=== PATIENT | female | born 1970 | race Caucasian/White ===

== ENCOUNTER 2021-01-20 15:16 | Inpatient (IN) | payer MEDICARE, SELFPAY ==
[2021-01-20] VITALS (23 sets, daily range): BP systolic 80–131; BP diastolic 55–94; PULSE 108–162; RESP 14–33; TEMP 36.3–36.9; O2SAT 94–100; BMI 33.3
--- NOTE | ~2021-01-20 | US_ITS ---
EXAMINATION: US renal BI DATE: 01/21/2021 08:39 INDICATION: Acute renal failure TECHNIQUE: Multiple ultrasound grayscale images of the kidneys were obtained. COMPARISON: None. FINDINGS: The right kidney measures 10.0 x 5.2 x 4.7 cm. Mild right hydronephrosis The left kidney measures 0.0 x 6.3 x 5.7 cm. No left-sided hydronephrosis. The kidneys demonstrate normal echogenicity. No stones identified. The bladder is decompressed around a Lott catheter which limits evaluation.. IMPRESSION: 1. Mild right hydronephrosis which appears decreased since CT from one day prior at which time there was moderate hydroureteronephrosis secondary to an obstructing 13 mm distal right ureteral stone. Reviewed, dictated and finalized at location A. IMPRESSION: 1. Mild right hydronephrosis which appears decreased since CT from one day cem or at which time there was moderate hydroureteronephrosis secondary to an obstr ucting 13 mm distal right ureteral stone.
--- NOTE | ~2021-01-20 | CT_ITS ---
EXAMINATION: CT brain wo [facility] EXAM DATE: 01/20/2021 18:37 INDICATION: Altered mental status, confusion, lethargy, nausea and vomiting. TECHNIQUE: Spiral CT of the head was performed without contrast. Axial, coronal and sagittal images were reviewed. The dose-length product (DLP) for this examination was 1343.72 mGy-cm. The exposure was tailored according to patient size, and iterative reconstruction (ASIR) was used as additional do se reduction technique. There is no prior study for comparison. FINDINGS: There is no acute intraparenchymal hemorrhage. No evidence of intraparenchymal brain mass lesion. No evidence of acute infarction. There is no mass effect or midline shift. The ventricles are normal in size. There are no extra-axial collections. There are no acute calvarial fractures. T he orbits are unremarkable. Soft tissue is unremarkable. The visualized sinuses and mastoid air israel ls are well aerated. IMPRESSION: 1. No acute intracranial findings. Reviewed, dictated and finalized at location G.
--- NOTE | ~2021-01-20 | XR_ITS ---
EXAMINATION: XR stent kub - surgery DATE: 01/21/2021 14:58 INDICATION: Right internal ureteral stent placement TECHNIQUE: Fluoroscopic images from a right internal ureteral stent placement are submitted for sabra walden 49 seconds of fluoroscopy time. FINDINGS: There is a right double-J internal ureteral stent projecting in expected position, with proximal Hodge loop at the level of the renal pelvis and distal loop in the pelvis within the bladder lumen. IMPRESSION: 1. Right internal ureteral stent placement. Please refer to real-time procedural findings for detkavitha ls. Reviewed, dictated and finalized at location A. IMPRESSION: 1. Right internal ureteral stent placement. Please refer to real-time procedu ral findings for details.
--- NOTE | ~2021-01-20 | CT_ITS ---
EXAMINATION: CT abdomen pelvis wo con DATE: 01/21/2021 13:24 INDICATION: Sepsis and elevated lactic acid. TECHNIQUE: Computed tomography (CT) of the abdomen and pelvis was performed without intravenous contr ast. Automated exposure control and iterative reconstruction technique were employed. The dose-length product was 1430.67 mGy-cm. COMPARISON: 01/20/2021 FINDINGS: Mild bilateral posterior layering pleural effusions with dependent atelectasis in the bilateral lower lobes. Heart size is normal. No pericardial effusion. Small sliding-type hiatal hernia versus circum ferential wall thickening in the distal esophagus. Diffuse hepatic steatosis. Cholecystectomy clips a t the gallbladder fossa. Spleen, pancreas, bilateral adrenal glands are normal. 1 mm nonobstructing s tone at a lower pole calyx of the left kidney. Small region of cortical scarring at the lower pole of the right kidney. Unchanged 17 x 6 x 5 mm distal right ureteral stone but with improvement of previo usly moderate, now mild right hydronephrosis. Appendix is normal. Unchanged wall thickening in the pr oximal colon which is of macroscopic fat attenuation and favor fatty infiltration related to body hab itus over colitis. No bowel obstruction. Lott catheter in the decompressed bladder. Uterus and bilat eral adnexa are unremarkable. Small amount of ascites scattered throughout the abdomen and pelvis. No loculated fluid collections to suggest abscess. Mild mesenteric and retroperitoneal edema. Right com mon femoral central venous catheter with distal tip in the right common iliac vein. No pathologically enlarged abdominal or pelvic lymphadenopathy. Mild thoracolumbar spondylosis. IMPRESSION: 1. Nonspecific mild mesenteric and retroperitoneal edema with small amount of ascites scattered throu ghout the abdomen and pelvis. On the previous study there was significant peripancreatic stranding wh ich is improved in the current study suggesting possible acute pancreatitis. 2. Unchanged 17 x 6 x 5 mm distal right ureteral stone with improvement of previously moderate, now m ild right hydronephrosis. Nonobstructing 1 mm left renal stone. 3. Diffuse hepatic steatosis. 4. Small bilateral pleural effusions. 5. Small sliding-type hiatal hernia versus circumferential wall thickening the distal esophagus which could be related to reflux. Reviewed, dictated and finalized at location A. IMPRESSION: 1. Nonspecific mild mesenteric and retroperitoneal edema with small amount of a scites scattered throughout the abdomen and pelvis. On the previous study there was significant peripancreatic stranding which is improved in the current stud y suggesting possible acute pancreatitis. 2. Unchanged 17 x 6 x 5 mm distal right ureteral stone with improvement of prev iously moderate, now mild right hydronephrosis. Nonobstructing 1 mm left renal stone. 3. Diffuse hepatic steatosis. 4. Small bilateral pleural effusions. 5. Small sliding-type hiatal hernia versus circumferential wall thickening the distal esophagus which could be related to reflux.
--- NOTE | ~2021-01-20 | XR_ITS ---
EXAMINATION: XR abdomen NG/feed tube insert INDICATION: Nasogastric tube placement TECHNIQUE: Portable AP KUB-NG at 2141 hours COMPARISON: CT from today FINDINGS: The nasogastric tube is in the stomach. There is mild atelectasis of the lung bases. Cholec ystectomy clips are noted in the right upper quadrant. IMPRESSION: 1. Nasogastric tube in the stomach. Reviewed, dictated and finalized at location A.
--- NOTE | ~2021-01-20 | XR_ITS ---
XR abdomen/kub 1V 01/21/2021 11:30 INDICATION: NG tube position TECHNIQUE: KUB COMPARISON: 01/20/2021 FINDINGS: Bowel gas pattern is normal. NG tube tip in the stomach. There are cholecystectomy clips. T here is a right femoral vascular catheter partially visualized. There is no evidence of free air, mas s, organomegaly, ascites or obstruction. No abnormal calculi are seen. The bones appear intact. IMPRESSION: 1: No acute abdominal abnormality identified. Reviewed, dictated and finalized at location A.
--- NOTE | ~2021-01-20 | CT_ITS ---
EXAMINATION: CT abdomen pelvis wo con DATE: 01/20/2021 18:37 INDICATION: Epigastric pain, confusion and lethargy TECHNIQUE: Computed tomography (CT) of the abdomen and pelvis was performed without intravenous contr ast. The dose-length product (DLP) was 1343.72 mGy-cm. Automated exposure control and iterative recon struction technique were employed. COMPARISON: None FINDINGS: Minimal dependent atelectasis is present in the lung bases. The heart size is normal. The l iver is diffusely low in attenuation when compared with the spleen, consistent with hepatic steatosis . The gallbladder is surgically absent. There is enlargement of the pancreas with edematous stranding surrounding much of the peripancreatic fat. Fluid tracks into the right pericolic gutter. Wall thick ening in the second portion of the duodenum is likely reactive. The spleen, adrenal glands, and left kidney are normal. There is a 13 mm stone in the distal right ureter, measure craniocaudal, which cau ses moderate right hydroureteronephrosis. There is no free intraperitoneal gas or evidence of bowel o bstruction. No pathologically enlarged abdominal or pelvic lymph nodes are identified. There is mild lumbar spondylosis. IMPRESSION: 1. Acute pancreatitis with acute peripancreatic fluid. 2. 13 mm stone of the right distal ureter causing moderate right hydroureteronephrosis. 3. Diffuse hepatic steatosis. Reviewed, dictated and finalized at location A. IMPRESSION: 1. Acute pancreatitis with acute peripancreatic fluid. 2. 13 mm stone of the right distal ureter causing moderate right hydroureterone phrosis. 3. Diffuse hepatic steatosis.
--- NOTE | ~2021-01-20 | XR_ITS ---
EXAMINATION: XR chest 1V portable INDICATION: Transient alteration of awareness TECHNIQUE: Portable AP chest at 1802 hours COMPARISON: 03/24/2018 FINDINGS: The lungs are free of acute opacities. There is no pleural effusion or pneumothorax. The ca rdiomediastinal silhouette is normal. The visualized bones and soft tissues are unremarkable. IMPRESSION: 1. No acute cardiopulmonary abnormality. Reviewed, dictated and finalized at location A.
[2021-01-20 15:23] LABS: Glucose Point of Care > 500 mg/dl (65-105)
[2021-01-20] MEDS: SODIUM CHLORIDE 0.9% IV 1,000 ML 999 ML (15:45)
[2021-01-20 16:06] LABS: Alveolar/Arterial O2 Gradient 33.8 mmHg; Base Excess ABG -14.9 mEq/l (+/-2.0); Carboxyhemoglobin 0.9 % THb (0-2.0); Fractional Inspired Oxygen 21 %; HCO3 ABG 12.5 mEq/l (22.0-26.0); Methemoglobin ABG 0.5 %THb (0-1.5); Oxygen Content ABG 18.5 %vol (16.0-22.0); Oxygen Saturation ABG 91.3 % (95.0-100.0); Oxyhemoglobin 91.5 % THb (90.0-100.0); PCO2 ABG 34.7 mmHg (35.0-45.0); PO2 ABG 74.4 mmHg (80.0-100.0); PO2 FiO2 Ratio Arterial Blood 3.54 %; Reduced Hemoglobin 7.1 %THb (0-5.0); Total Hemoglobin 14.4 g/dL (12.0-18.0)
[2021-01-20 16:08] LABS: Device ROOM AIR; Site Drawn LEFT BRACHIAL
[2021-01-20 16:46] LABS: Add Urine Microscopic? YES; Appearance Urine Turbid (Clear); Bilirubin Urine Negative (Negative); Blood Urine 2+ (Negative); Color Urine Yellow (Yellow); Glucose Urine UA 3+ mg/dL (Negative); Ketones Urine Trace mg/dL (Negative); Leukocyte Esterase Ur 3+ LEU/UL (Negative); Nitrate Urine Negative (Negative); Protein Urine 1+ mg/dL (Negative); RBC Urine 21-50 /hpf (0-2); Specific Grav Ur 1.025 (1.001-1.035); Squamous Epithelial Cell Urine Occasional /hpf (Few); Urobilinogen Urine Negative mg/dL (<2.0); WBC Clumps Urine Present /HPF; WBC Urine >75 /hpf
[2021-01-20 16:56] LABS: Lactic Acid Reflex 3.1 mmol/L (0.7-2.1)
[2021-01-20 17:04] LABS: Hemoglobin A1C > 14.0 % (<5.7)
--- NOTE | 2021-01-20 17:08 | ED.GENADULT ---
HPI - General Adult General Chief complaint: Unspecified Stated complaint: N/V ABD PAIN Time Seen by Provider: 01/20/21 15:23 History of Present Illness HPI narrative: Patient is a 50-year-old female who presents ER after EMS was called by her daughter. Patient's daughter reports patient has been vomiting for the last 2 weeks and reporting that she has been having burning urination. Today patient cannot fill the bathtub properly as she cannot put the plug in the drain. This prompted the daughter to call EMS because her mom was not acting right and was acting more confused. Patient reports she has been very thirsty for several days. Poor historian due to severity of illness. Related Data Allergies Allergy/AdvReac Type Severity Reaction Status Date / Time No Known Allergies Allergy Unknown Unverified 01/20/21 16:24 Review of Systems Review of Systems: ROS unobtainable: Yes unobtainable due to medical condition PMFSH Past Medical History Medical History (Updated 01/20/21 @ 19:31 by Raul Sharif MD) Anxiety COPD (chronic obstructive pulmonary disease) Depression History of fibromyalgia Hypertension Surgical History Surgical History (Updated 01/20/21 @ 17:30 by Raul Sharif MD) History of section History of cholecystectomy History of tubal ligation Family History Family History Sibling Family history of mental disorder Depression Mother Family history of mental disorder Depression Patient's mother is in good health Father Patient's father is Grandparent Hypertension Mother Family history of tuberculosis Depression Social History Social History Smoking status: Former smoker Smoking end date: 06/27/14 Alcohol intake: current Exam Narrative: Exam Narrative: GENERAL: Ill-appearing, well-nourished, and in no acute distress. HEAD: Normocephalic, atraumatic. EYES: PERRL and EOMI. ENT: Dry mucous membranes with poor dentition. CHEST: Clear to auscultation. No respiratory distress. HEART: Tachycardic regular.. Normal peripheral pulses. ABDOMEN: Soft, mild diffuse tenderness, nondistended, normal active bowel sounds. EXTREMITIES: Normal range of motion. No edema. SKIN: Warm, dry, no rash. NEURO: Alert and oriented x2. Course Course Emergency Course: Patient critically ill and this has been explained to her daughter as well as her . Consultants include the pulp bleacher as well as urology and cardiology. Initial plan was to take patient to the OR for stenting but it is felt she may not be stable enough. Patient has had some extreme tachycardia up to the 180s. After discussions with Dr. Clarke and an EKG that shows ST depression is felt that we need to continue to treat the DKA and dehydration with fluids. Should patient require any rate control as recommended patient received IV amiodarone bolus followed by drip. Repeat labs have found that potassium is now critically low so insulin drip was stopped and patient received oral and IV potassium. It is encouraging that patient now has a detectable glucose of 1615 when it was just reading too high previously. Patient has received ceftriaxone for her infection. Was pancultured. Patient with worsening acidosis and has received 2 A of sodium bicarbonate. Vital Signs Vital signs: Vital Signs Pulse Rate 119 H 01/20/21 15:12 Respiratory Rate 24 H 01/20/21 15:12 Blood Pressure 94/67 L 01/20/21 15:12 Pulse Oximetry 96 01/20/21 15:12 Temperature 98.4 F 01/20/21 19:08 Pulse Rate 157 H 01/20/21 20:46 Respiratory Rate 26 H 01/20/21 20:46 Blood Pressure 102/77 01/20/21 20:46 Pulse Oximetry 95 01/20/21 19:08 Medical Decision Making Vital Signs Vital Signs: Vital Signs Pulse Rate 119 H 01/20/21 15:12 Respiratory Rate 24 H 01/20/21 15:12 Blood Pressure 94/67
[2021-01-20 17:13] LABS: Alanine Aminotransferase 39 U/L (4-35); Alkaline Phosphatase 256 U/L (38-126); Anion Gap 24 mmol/L (8-16); Aspartate Amino Transferase 33 U/L (14-36); Bilirubin,Total 0.9 mg/dL (0.2-1.3); Blood Urea Nitrogen 32 mg/dL (7-17); Calcium 7.9 mg/dL (8.4-10.2); Carbon Dioxide 14 mmol/L (22-30); Chloride 88 mmol/L (98-107); Estimated Glomerular Filt Rate 18; Magnesium 2.7 mg/dL (1.6-2.3); Phosphorus 3.5 mg/dL (2.5-4.5); Potassium 3.4 mmol/L (3.4-5.0); Sodium 126 mmol/L (137-145)
[2021-01-20] MEDS: SODIUM CHLORIDE 0.9% IV 1,000 ML 999 ML IV CONT ×3 (17:15→19:32)
[2021-01-20 17:27] LABS: Basophils Absolute Auto 0.1 K/mm3 (0.0-0.1); Basophils Percent Auto 0.3 % (0.2-1.2); Hematocrit 53.1 % (37.0-47.0); Hemoglobin 13.9 g/dL (12.0-15.0); Immature Granulocyte Percent A 0.7 % (0-0.5); Lymphocytes Absolute Auto 0.68 K/mm3 (0.9-3.2); Lymphocytes Percent Auto 4.8 % (18.3-44.2); Mean Corpuscular HGB Conc 26.2 g/dl (32-36); Mean Corpuscular Hemoglobin 30.6 pg (26-34); Mean Platelet Volume 12.7 fl (7.4-10.4); Monocytes Absolute Auto 1.5 K/mm3 (0.1-0.6); Monocytes Percent Auto 10.3 % (2.6-8.5); Neutrophils Percent Auto 83.9 % (45.5-73.1); Platelet Count Result 289 k/mm3 (150-375); Red Blood Count 4.54 M/mm3 (4.2-5.4); Red Cell Distribution Width 13.7 % (11.5-14.5); White Blood Count 14.3 K/mm3 (4.5-10.0)
[2021-01-20 17:39] LABS: Albumin Level 3.3 g/dL (3.5-5.1); Glucose > 1875 mg/dL (65-110)
[2021-01-20] MEDS: INSULIN HUMAN REGULAR (*BKC) 100 UNITS in SODIUM CHLORIDE 0.9% IV 99 ML 36.3 UNITS IV CONT (18:00)
--- NOTE | 2021-01-20 18:07 | PC.NURSE ---
Pt confused and daughter stepped out of room. Placing pt on bed alarm at this time
--- NOTE | 2021-01-20 18:28 | PC.NURSE ---
Pt to CT scan via stretcher on tele monitor.
[2021-01-20 18:50] LABS: Glucose Point of Care > 500 mg/dl (65-105)
[2021-01-20] MEDS: MORPHINE SULFATE (*CRX) 4 MG/ML INJ IV PUSH (19:00)
--- NOTE | 2021-01-20 19:09 | PC.NURSE ---
EDP Dr. Sharif made aware of abnormal VS.
--- NOTE | 2021-01-20 19:19 | ECG_ITS ---
Measurements Intervals [place] Rate: 114 P: 47 UT: 118 QRS: -22 QRSD: 94 T: -45 QT: 327 QTc: 452 Interpretive Statements SINUS TACHYCARDIA WITH SHORT UT INTERVAL POSSIBLE LEFT ATRIAL ENLARGEMENT ST-T WAVE ABNORMALITY IN INFERIOR LEADS- CONSIDER ISCHEMIA BASELINE ARTIFACT- I, II, III, AVR, AVL, AVF, V1-V6 ABNORMAL ECG Electronically Signed On 01-20-2021 21:08:26 CDT by Misael Lemon D.O.
[2021-01-20 19:22] LABS: INR 1.2; Prothrombin Time 14.7 Seconds (11.1-14.7)
[2021-01-20 19:23] LABS: Partial Thromboplastin Time 26.2 SECONDS (22.3-36.8)
[2021-01-20 19:27] LABS: Triglycerides 443 mg/dL (<150)
--- NOTE | 2021-01-20 19:31 | ECG_ITS ---
Measurements Intervals [place] Rate: 148 P: 112 SD: 149 QRS: -39 QRSD: 245 T: 0 QT: 325 QTc: 511 Interpretive Statements ATRIAL FLUTTER/TACHYCARDIA WITH RAPID VENTRICULAR RESPONSE LEFT AXIS DEVIATION INCOMPLETE RIGHT BUNDLE BRANCH BLOCK ST-T WAVE ABNORMALITY IN ANTEROLAT/INF LEADS- CONSIDER ISCHEMIA BASELINE ARTIFACT- I, II, III ABNORMAL ECG Electronically Signed On 01-20-2021 21:26:20 CDT by Misael Lemon D.O.
[2021-01-20 19:34] LABS: Reflex Lactic Acid Yes or No Add Lactic
[2021-01-20 20:00] LABS: Glucose > 1875 mg/dL (65-110); Lipase 7231 U/L (23-300)
[2021-01-20 20:15] LABS: pH ABG 7.174 (7.350-7.450)
[2021-01-20 20:17] LABS: Lactic Acid 4.6 mmol/L (0.7-2.1)
[2021-01-20 20:26] LABS: Troponin I < 0.012 ng/mL (0.000-0.034)
[2021-01-20] MEDS: SODIUM BICARBONATE 8.4% 50 MEQ/50 ML SYRINGE 100 MEQ IV PUSH (20:34)
[2021-01-20] MEDS: SODIUM BICARBONATE 8.4% 50 MEQ/50 ML VIAL (20:34)
--- NOTE | 2021-01-20 20:41 | PC.NURSE ---
Called unit to give report, unable to take report at this time. Unit to call ED back.
[2021-01-20 20:48] LABS: Anion Gap 22 mmol/L (8-16); Blood Urea Nitrogen 30 mg/dL (7-17); Calcium 7.9 mg/dL (8.4-10.2); Carbon Dioxide 11 mmol/L (22-30); Chloride 104 mmol/L (98-107); Creatine Kinase 164 U/L (30-135); Estimated Glomerular Filt Rate 21; Potassium < 2.0 mmol/L (3.4-5.0); Sodium 137 mmol/L (137-145)
--- NOTE | 2021-01-20 21:00 | PM.IMHP ---
H&P: HPI History of Present Illness Date/Time: 01/20/21 21:00 Chief Complaint: Lethargy, nausea, vomiting. Narrative: This is a 50-year-old with hypertension, anxiety, and asthma who presented to the emergency department earlier today via EMS from home for evaluation of lethargy, nausea, and vomiting. She is not able to provide me with much of an accurate history as she is confused and lethargic thus some of the following is obtained via a review of her electronic medical records, review of the EMS run report, and discussions with her daughter who is at bedside. She has not been feeling well for a couple of weeks with ongoing nausea and vomiting. Over the last couple of days she has also been complaining of dysuria and extreme thirst. This afternoon the patient was trying to take a bath and did understand why it was not filling up with water though she did not plug the drain. Her daughter then then decided to call EMS. In the emergency department she was found to have a glucose of greater than 1800, is in acute renal failure, and has evidence of a obstructing right distal ureteral calculus as well as acute pancreatitis. She has no prior history of diabetes, kidney stones, or pancreatitis to the daughter's knowledge. The patient has not complained of fever. Daughter has not noticed any cold or flu symptoms. The patient has not complained of diarrhea. She has reported some dysuria. At this time she is complaining of mild shortness of breath and abdominal pain though she is unable to further qualify. She denies chest pain. Review of Systems Review of Systems: Narrative: Twelve systems were reviewed with pertinent positives and negatives as per HPI. Somewhat limited given her lethargy and encephalopathy. Except as documented all other systems were reviewed and are negative. [facility] Past Medical History Medical History (Updated 01/21/21 @ 19:40 by Martina Chambers PA-C) Anxiety Chronic obstructive pulmonary disease Depression History of fibromyalgia Hypertension Surgical History Surgical History History of section History of cholecystectomy History of tubal ligation Family History Family History Sibling Family history of mental disorder Depression Mother Family history of mental disorder Depression Patient's mother is in good health Father Patient's father is Grandparent Hypertension Mother Family history of tuberculosis Depression Social History Social History (Updated 01/21/21 @ 19:41 by Martina Chambers PA-C) Social History: but . Currently living in an apartment. Plans to move in with her daughter and granddaughter. She is on disability for her fibromyalgia and anxiety. Former smoker, a pack of cigarettes a day for approximately 30 years. No alcohol or illicit substance abuse. Smoking end date: 06/27/14 Meds Home Medications and Allergies Home Medications Medication Instructions Recorded Confirmed Type naproxen 500 mg tablet 500 mg PO BID #60 tablet 05/28/19 01/21/21 Rx fluticasone propionate 220 See Rx Instructions .ROUTE 09/29/20 01/21/21 Rx mcg/actuation HFA aerosol inhaler .COMPLEX #12 inhaler fluticasone propionate 50 See Rx Instructions .ROUTE 09/29/20 01/21/21 Rx mcg/actuation nasal .COMPLEX #16 ml spray,suspension ipratropium 20 mcg-albuterol 100 See Rx Instructions .ROUTE 09/29/20 01/21/21 Rx mcg/actuation mist for inhalation .COMPLEX #12 gm metoprolol tartrate 50 mg tablet See Rx Instructions .ROUTE 09/29/20 01/21/21 Rx .COMPLEX #60 tablet clonazepam 1 mg tablet 1 mg PO TID #90 tablet 12/27/20 01/21/21 Rx Allergies Allergy/AdvReac Type Severity Reaction Status Date / Time No Known Allergies Allergy Unknown Unverified 01/20/21 16:24 Vital Signs Vital Signs - 24 hr 01/20/21 15:12 01/20/21 15:33 01/20
--- NOTE | 2021-01-20 21:02 | PC.NURSE ---
Insulin stopped per verbal read back order due to potassium level. Per Martina, NG to be started and 40 meq to be given that way. Waiting for IV potassium from pharmacy, pharmacy called at this time.
[2021-01-20 21:03] LABS: Magnesium 2.7 mg/dL (1.6-2.3); Phosphorus 1.6 mg/dL (2.5-4.5)
[2021-01-20 21:10] LABS: Glucose 1615 mg/dL (65-110)
--- NOTE | 2021-01-20 21:27 | PC.NURSE ---
Verbal order for NG tube from Martina. NG placed, 16 F. XY called for K[facility].
--- NOTE | 2021-01-20 22:00 | WPDPROCEDUR ---
Procedures Central Line Placement Right Femoral: Central Line Date: 01/20/21 Central Line Time: 22:00 Discussed w/ the patient/family/POA,the placement of a central venous catheter, including its clinical necessity/indication & associated potential risks, benifits and alternatives.: Yes The patient/family/POA understand(s) and acknowledge(s) the need to proceed with central venous catheter insertion as an important element of the patient's clinical management.: Yes Consent: Family gave consent to RN. Time Out Performed: Yes Patient Position: supine Patient placed on monitor/pulse ox: Yes Provider Prep: mask, sterile gown, sterile gloves, Max. sterile barrier precautions and cap Central line prep: 2% Chlorhexidine scrub Local anesthesia used: lidocaine 1% Amount of anesthesia used (ml): 5 Sterile US Technique with sterile gel/sterile probe covers: Yes Central line lumen inserted: triple Bangladeshi: 7 Length (cm): 20 Post Procedure: sutured in place, good blood return, all ports aspirated, flushed, capped, transparent dressing, securement product and aseptic technique maintained throughout procedure Post procedure x-ray: other (n/a with femoral placement ) Patient tolerated procedure: well Complications: none Additional comments: Discussed with Dr. Raul Sharif, ED attending physician, who was available if needed.
[2021-01-20] MEDS: POTASSIUM CHLORIDE 20 MEQ TABLET 40 MEQ PO (22:17)
--- NOTE | 2021-01-20 22:18 | PC.NURSE ---
Potassium at 250 per verbal read back order. Right femoral central okay to use by MD Martina.
[2021-01-20] MEDS: SODIUM CHLORIDE 0.9% IV 1,000 ML 200 ML IV CONT (22:26)
[2021-01-20] MEDS: NOREPINEPHRINE 8 MG/D5W 250 ML 8 MG/250 ML BAG 9.38 MG IV CONT (23:43)
[2021-01-20 23:54] LABS: Anion Gap 15 mmol/L (8-16); Blood Urea Nitrogen 29 mg/dL (7-17); Calcium 7.9 mg/dL (8.4-10.2); Carbon Dioxide 19 mmol/L (22-30); Chloride 113 mmol/L (98-107); Estimated CRCL calculation 26 ml/min; Estimated Glomerular Filt Rate 20; Glucose 1186 mg/dL (65-110); Potassium < 2.0 mmol/L (3.4-5.0); Sodium 147 mmol/L (137-145)
[2021-01-20 23:55] LABS: Lactic Acid Reflex 7.3 mmol/L (0.7-2.1)
[2021-01-21] VITALS (23 sets, daily range): BP systolic 85–144; BP diastolic 59–106; PULSE 80–117; RESP 18–34; TEMP 36.6–37.6; O2SAT 90–97; BMI 33.3
--- NOTE | 2021-01-21 00:30 | ADMGEN ---
This patient, Su A [place], was admitted to Intensive Care Unit-12. Patient/family oriented to hospital policies and general routines including ID bracelet, bed and alarms, visiting hours, pain management, procedures, bathroom and other care routines, personal items, smoking policy, room service/diet, and visiting hours. Information on how to activate the Rapid Response Team has been discussed. Patient/Family are encouraged to report perceived risks to care and to ask questions if they do not understand what they are told or what they should do.
[2021-01-21] MEDS: SODIUM CHLORIDE 0.45% 1,000 ML 125 ML IV CONT (01:33)
[2021-01-21 04:54] LABS: Hematocrit 44.8 % (37.0-47.0); Hemoglobin 14.2 g/dL (12.0-15.0); Mean Corpuscular HGB Conc 31.7 g/dl (32-36); Mean Corpuscular Hemoglobin 30.1 pg (26-34); Mean Corpuscular Volume 95.1 fl (80-100); Mean Platelet Volume 11.8 fl (7.4-10.4); Platelet Count Result 306 k/mm3 (150-375); Red Blood Count 4.71 M/mm3 (4.2-5.4); Red Cell Distribution Width 13.4 % (11.5-14.5); White Blood Count 14.8 K/mm3 (4.5-10.0)
[2021-01-21 05:10] LABS: Lactic Acid Reflex 2.5 mmol/L (0.7-2.1)
[2021-01-21 05:19] LABS: Band Neutrophils Percent 16 % (0-6); Neutrophils Absolute Manual 12.87 K/mm3 (1.7-7.2); Neutrophils Percent Manual 71 % (46-73); Total Cells Counted 100
[2021-01-21 05:20] LABS: Lymphocytes Absolute Manual 0.88 K/mm3 (1.1-4.5); Monocytes Absolute Manual 1.03 K/mm3 (0.1-0.90); Monocytes Percent Manual 7 % (3-9); Platelet Estimate Adequate (Adequate)
[2021-01-21 05:28] LABS: Alanine Aminotransferase 35 U/L (4-35); Albumin Level 2.9 g/dL (3.5-5.1); Alkaline Phosphatase 212 U/L (38-126); Anion Gap 16 mmol/L (8-16); Aspartate Amino Transferase 41 U/L (14-36); Bilirubin,Total 0.6 mg/dL (0.2-1.3); Blood Urea Nitrogen 33 mg/dL (7-17); Calcium 8.1 mg/dL (8.4-10.2); Carbon Dioxide 18 mmol/L (22-30); Chloride 112 mmol/L (98-107); Creatine Kinase 385 U/L (30-135); Estimated CRCL calculation 28 ml/min; Estimated Glomerular Filt Rate 22; Glucose 1145 mg/dL (65-110); Magnesium 2.8 mg/dL (1.6-2.3); Phosphorus 1.4 mg/dL (2.5-4.5); Potassium 3.9 mmol/L (3.4-5.0); Sodium 146 mmol/L (137-145)
--- NOTE | 2021-01-21 05:44 | PC.NURSE ---
Dr. Mariscal was updated with current lab results. Keep 1/2 NS @ 125. Start insulin drip per protocol, no other maintenance IVF.
[2021-01-21 06:01] LABS: Thyroid Stimulating Hormone Reflex 0.799 uIU/mL (0.465-4.68)
[2021-01-21] MEDS: INSULIN HUMAN REGULAR (*BKC) 100 UNITS in SODIUM CHLORIDE 0.9% IV 99 ML 21.7 UNITS IV CONT (06:16)
[2021-01-21] MEDS: CENTRAL LINE FLUSH 10 ML IV PUSH ×4 (06:40→19:46)
--- NOTE | 2021-01-21 07:36 | WPDURCON ---
Assessment and Plan Assessment and plan (1) Diabetic ketoacidosis: Code(s): E11.10 - Type 2 diabetes mellitus with ketoacidosis without coma Status: Acute (2) Urinary tract infection: Code(s): N39.0 - Urinary tract infection, site not specified Status: Acute (3) Ureterolithiasis: Code(s): N20.1 - Calculus of ureter Status: Acute Assessment and Plan: - after discussion with primary team, Emergency Department and anesthesia team last night, patient's endocrinologic issues were considered to be her primary issue at this time and the patient not stable for OR procedure. The patient was taken to the intensive care unit for management of her blood sugars and electrolyte abnormalities. We will plan for cystoscopy and right ureteral stent insertion when patient deemed stable for this procedure. If necessary cystoscopy and stent insertion may be performed in her ICU bed, however it would be preferable to perform procedure in OR with fluoroscopy. We will continue to follow closely. Continue IV antibiotics at this time. Appreciate ICU care Urology Consult Note HPI Date Seen: 01/21/21 Requesting Physician: Federico Cheatham MD Primary Care Provider: Aguilar Huerta MD Consult Narrative Narrative: Su Chew is a 50 year old female presented to the ER with multiple acute medical issues. She was found to be in DKA and have acute pancreatitis. Additionally she was found on CT scan imaging to have a right distal ureteral stone and possible urinary tract infection. Patient was transferred to the ICU to manage her newly diagnosed diabetes. Urology was consulted to assess the patient Review of Systems Review of Systems: ROS unobtainable: Yes unobtainable due to medical condition PMFSH Past Medical History Medical History (Updated 01/20/21 @ 23:24 by Martina Chambers PA-C) Anxiety COPD (chronic obstructive pulmonary disease) Depression History of fibromyalgia Hypertension Surgical History Surgical History (Updated 01/20/21 @ 17:30 by Raul Sharif MD) History of section History of cholecystectomy History of tubal ligation Family History Family History Sibling Family history of mental disorder Depression Mother Family history of mental disorder Depression Patient's mother is in good health Father Patient's father is Grandparent Hypertension Mother Family history of tuberculosis Depression Social History Social History Smoking status: Former smoker Smoking end date: 06/27/14 Alcohol intake: unknown Substance use: unknown Spiritual care concerns: No Meds Home Medications and Allergies Home Medications Medication Instructions Recorded Confirmed Type naproxen 500 mg tablet 500 mg PO BID #60 tablet 05/28/19 01/21/21 Rx fluticasone propionate 220 See Rx Instructions .ROUTE 09/29/20 01/21/21 Rx mcg/actuation HFA aerosol inhaler .COMPLEX #12 inhaler fluticasone propionate 50 See Rx Instructions .ROUTE 09/29/20 01/21/21 Rx mcg/actuation nasal .COMPLEX #16 ml spray,suspension ipratropium 20 mcg-albuterol 100 See Rx Instructions .ROUTE 09/29/20 01/21/21 Rx mcg/actuation mist for inhalation .COMPLEX #12 gm metoprolol tartrate 50 mg tablet See Rx Instructions .ROUTE 09/29/20 01/21/21 Rx .COMPLEX #60 tablet clonazepam 1 mg tablet 1 mg PO TID #90 tablet 12/27/20 01/21/21 Rx Allergies Allergy/AdvReac Type Severity Reaction Status Date / Time No Known Allergies Allergy Unknown Unverified 01/20/21 16:24 Vital Signs Vital Signs - 24 hr 01/20/21 15:12 01/20/21 15:33 01/20/21 16:08 Temperature Pulse Rate 119 H 110 H 111 H Respiratory Rate 24 H 25 H Blood Pressure 94/67 L 107/65 Pulse Oximetry 96 100 01/20/21 16:16 01/20/21 16:24 01/20/21 16:58 Temperature
[2021-01-21 07:44] LABS: PCO2 ABG 28.1 mmHg (35.0-45.0)
[2021-01-21 07:45] LABS: HCO3 ABG 9.6 mEq/l (22.0-26.0); PO2 ABG 85.3 mmHg (80.0-100.0)
[2021-01-21 07:46] LABS: Base Excess ABG -17.7 mEq/l (+/-2.0); Oxygen Saturation ABG 93.7 % (95.0-100.0)
[2021-01-21 07:49] LABS: Total Hemoglobin 14.9 g/dL (12.0-18.0); pH ABG 7.152 (7.350-7.450)
[2021-01-21 07:50] LABS: Alveolar/Arterial O2 Gradient 30.8 mmHg; Device ROOM AIR; Fractional Inspired Oxygen 21 %; Methemoglobin ABG 0.5 %THb (0-1.5); Oxygen Content ABG 19.7 %vol (16.0-22.0); Oxyhemoglobin 93.7 % THb (90.0-100.0); PO2 FiO2 Ratio Arterial Blood 4.06 %; Reduced Hemoglobin 4.8 %THb (0-5.0)
[2021-01-21 07:50] LABS: Reflex Lactic Acid Yes or No Add Lactic
[2021-01-21] MEDS: PERFLUTREN LIPID MICROSPHERES 1.5 ML VIAL DILUTED TO 10 ML TOTAL VOLUME IV PUSH (08:05)
[2021-01-21 08:14] LABS: Glucose Point of Care > 500 mg/dl (65-105)
[2021-01-21 08:46] LABS: Ammonia < 9 umol/L (9-30)
[2021-01-21 08:47] LABS: Lactic Acid 4.7 mmol/L (0.7-2.1)
[2021-01-21 09:09] LABS: Anion Gap 19 mmol/L (8-16); Blood Urea Nitrogen 32 mg/dL (7-17); Calcium 8.3 mg/dL (8.4-10.2); Carbon Dioxide 16 mmol/L (22-30); Chloride 114 mmol/L (98-107); Estimated CRCL calculation 26 ml/min; Estimated Glomerular Filt Rate 20; Glucose 978 mg/dL (65-110); Potassium 3.1 mmol/L (3.4-5.0); Sodium 149 mmol/L (137-145)
[2021-01-21] MEDS: SODIUM PHOSPHATE 20 MM in DEXTROSE 5% IN WATER 250 ML 50 MM IVPB (09:42)
[2021-01-21] MEDS: ENOXAPARIN 30 MG/0.3 ML SYRINGE SUB-Q (09:42)
[2021-01-21] MEDS: PANTOPRAZOLE SODIUM IV 40 MG VIAL IV PUSH (09:43)
[2021-01-21 10:16] LABS: Glucose Point of Care > 500 mg/dl (65-105)
[2021-01-21] MEDS: ONDANSETRON INJ 4 MG/2 ML VIAL IV PUSH (10:48)
[2021-01-21] MEDS: POTASSIUM CHLORIDE 20 MEQ PACKET (FOR LIQUID) 40 MEQ FEED TUBE (10:48)
--- NOTE | 2021-01-21 10:51 | WPDCNINT ---
Assessment and Plan Assessment and plan (1) Septic shock: Code(s): A41.9 - Sepsis, unspecified organism; R65.21 - Severe sepsis with septic shock Status: Acute Assessment and Plan: septic shock secondary to UTI. And also has pancreatitis urine and blood cultures patient received aggressive volume resuscitation continue IV fluids Levophed titration to maintain map continue to monitor lactic acid level CT abdomen shows diffuse hepatic steatosis which may impact lactic clearance echocardiogram (2) Diabetic ketoacidosis: Code(s): E11.10 - Type 2 diabetes mellitus with ketoacidosis without coma Status: Acute Assessment and Plan: IV fluid bolus and infusion insulin infusion serial BMPs insulin infusion had to be turned on multiple times overnight due to hypokalemia (3) Metabolic encephalopathy: Code(s): G93.41 - Metabolic encephalopathy Status: Acute Assessment and Plan: head CT was negative TSH normal likely toxic metabolic encephalopathy check ammonia level (4) Acute kidney injury: Code(s): N17.9 - Acute kidney failure, unspecified Status: Acute Assessment and Plan: likely secondary to sepsis, hypovolemia, right ureteral stone causing hydronephrosis continue IV fluids monitor urine output and electrolytes (5) Urinary tract infection: Code(s): N39.0 - Urinary tract infection, site not specified Status: Acute Assessment and Plan: urine culture and blood cultures imipenem (6) Ureterolithiasis: Code(s): N20.1 - Calculus of ureter Status: Acute Assessment and Plan: urology consulted and plan to place a stent (7) Acute pancreatitis: Code(s): K85.90 - Acute pancreatitis without necrosis or infection, unspecified Status: Acute Assessment and Plan: lipase [address] confirmed diagnosis of pancreatitis NPO her triglyceride levels elevated but not high enough to cause pancreatitis CT abdomen shows as patient is status post cholecystectomy. bilirubin is normal (8) Electrolyte abnormality: Code(s): E87.8 - Other disorders of electrolyte and fluid balance, not elsewhere classified Status: Acute Assessment and Plan: significant severe electrolyte abnormalities patient had developed hypokalemia and that led to stopping insulin drip multiple times. Hypokalemia is being aggressively replaced low phosphate is also being replaced patient hypernatremic on presentation when corrected for her blood sugar. she was on half normal saline with potassium. D5 water held as patient's blood sugar still close to 1000. corrected sodium which was above 173 on arrival is improving slowly. (9) Abnormal EKG: Code(s): R94.31 - Abnormal electrocardiogram [ECG] [EKG] Status: Acute Assessment and Plan: abnormal EKG on presentation. although history was limited there was no mention of any chest pain by patient or her daughter 1st troponin was negative this is likely secondary to significant metabolic and electrolyte derangement repeat EKG serial troponin cardiology was already consulted in ER echo done and report pending Additional Plan DVT prophylaxis - Lovenox Stress ulcer prophylaxis - at PPI Nutrition - NPO Code Status - Full Code Total Critical Care Time - 50 minutes Due to a high probability of clinically significant, life threatening deterioration, the patient required my highest level of preparedness to intervene emergently and I personally spent this critical care time directly and personally managing the patient. This critical care time included obtaining a history; examining the patient; pulse oximetry; ordering and review of studies; arranging urgent treatment with development of a management plan; evaluation of patient's response to treatment; frequent reassessment; and discussions with other providers. It
--- NOTE | 2021-01-21 11:00 | PC.NURSE ---
notified of emesis post Potassium chloride per tube administration. NG to intermittent wall suction, and Stat KUB ordered.
[2021-01-21 11:11] LABS: Glucose 740 mg/dL (65-110)
--- NOTE | 2021-01-21 11:22 | ECG_ITS ---
Measurements Intervals [place] Rate: 118 P: [place]: 0 QRS: 50 QRSD: 68 T: 261 QT: 333 QTc: 468 Interpretive Statements ECTOPIC ATRIAL TACHYCARDIA BORDERLINE ST-T WAVE ABNORMALITY- DIFFUSE LEADS BASELINE ARTIFACT- V3-V6 ABNORMAL ECG Electronically Signed On 01-21-2021 14:26:06 CDT by Misael Lemon D.O.
[2021-01-21] MEDS: KCL 40 MEQ/0.45% NS 1,000 ML 125 ML IV CONT (11:40)
[2021-01-21] MEDS: INSULIN HUMAN REGULAR (*BKC) 100 UNITS in SODIUM CHLORIDE 0.9% IV 99 ML 20.4 UNITS IV CONT (11:45)
[2021-01-21 12:22] LABS: Glucose 541 mg/dL (65-110)
[2021-01-21 12:35] LABS: Troponin I 0.449 ng/mL (0.000-0.034)
[2021-01-21 12:44] LABS: Lactic Acid Reflex 7.6 mmol/L (0.7-2.1)
--- NOTE | 2021-01-21 13:12 | WPDHPUPDATE1 ---
History and Physical Update Update Date/Time: 01/21/21 13:12 History and Physical has been reviewed, including an updated exam of the patient. There are NO changes in the patient's condition. Risks, benefits, and alternatives have been discussed and questions answered. Patient agrees to proceed with procedure.
--- NOTE | 2021-01-21 13:41 | WPDANESEPPF ---
Anes - Initial Pre Proc Eval Procedure: Operation Date: 01/21/21 14:30 Proposed Procedures p Cystoscopy, Right Stent Placement(Right) - Yoel Garcia MD Date/Time: 01/21/21 13:41 Surgeon: Federico Cheatham MD Pre Op Diagnosis: dka, moira, due to sepsis and dka, uti Patient Data Age: 50 Gender: F Height: 1.63 m Weight: 88 kg Last Vital Signs Temp 37.5 C 01/21/21 12:00 Pulse 109 H 01/21/21 12:00 Resp 30 H 01/21/21 12:00 BP 110/62 01/21/21 12:00 Pulse Ox 95 01/21/21 12:00 Allergies Allergy/AdvReac Type Severity Reaction Status Date / Time No Known Allergies Allergy Unknown Unverified 01/20/21 16:24 Home Medications Medication Instructions Recorded Confirmed Type naproxen 500 mg tablet 500 mg PO BID #60 tablet 05/28/19 01/21/21 Rx fluticasone propionate 220 See Rx Instructions .ROUTE 09/29/20 01/21/21 Rx mcg/actuation HFA aerosol inhaler .COMPLEX #12 inhaler fluticasone propionate 50 See Rx Instructions .ROUTE 09/29/20 01/21/21 Rx mcg/actuation nasal .COMPLEX #16 ml spray,suspension ipratropium 20 mcg-albuterol 100 See Rx Instructions .ROUTE 09/29/20 01/21/21 Rx mcg/actuation mist for inhalation .COMPLEX #12 gm metoprolol tartrate 50 mg tablet See Rx Instructions .ROUTE 09/29/20 01/21/21 Rx .COMPLEX #60 tablet clonazepam 1 mg tablet 1 mg PO TID #90 tablet 12/27/20 01/21/21 Rx Laboratory Tests 01/20/21 01/20/21 01/20/21 15:19 16:00 16:21 WBC RBC Hgb Hct MCV MCH MCHC RDW Plt Count MPV Immature Gran % (Auto) Neut % (Auto) Lymph % (Auto) [place] % (Auto) Eos % (Auto) Baso % (Auto) Lymph # (Auto) [place] # (Auto) Eos # (Auto) Baso # (Auto) Abs Immat Gran (auto) Absolute Neuts (auto) Absolute Nucleated RBC Total Counted Neutrophils % (Manual) Band Neutrophils % Lymphocytes % (Manual) Monocytes % (Manual) Nucleated RBC % Abs Neuts (Manual) Abs Lymphs (Manual) Abs Monocytes (Manual) Platelet Estimate PT INR APTT Puncture Site Left brachial ABG pH 7.174 L* (7.350-7.450) ABG pCO2 34.7 mmHg L mmHg (35.0-45.0) ABG pO2 74.4 mmHg L mmHg (80.0-100.0) ABG PO2/FiO2 Ratio 3.54 % % ABG HCO3 12.5 mEq/l L mEq/l (22.0-26.0) ABG O2 Saturation 91.3 % L % (95.0-100.0) ABG O2 Content 18.5 %vol %vol (16.0-22.0) ABG Base Excess -14.9 mEq/l mEq/l (+/-2.0) A-a Gradient 33.8 mmHg mmHg Oxyhemoglobin 91.5 % THb % THb (90.0-100.0) Carboxyhemoglobin 0.9 % THb % THb (0-2.0) Methemoglobin 0.5 %THb %THb (0-1.5) Reduced Hemoglobin 7.1 %THb H %THb (0-5.0) Total Hemoglobin 14.4 g/dL g/dL (12.0-18.0) O2 Delivery Device Room air O2 Liters/Min Not Reportable FiO2 21 % % Sodium Potassium Chloride Carbon Dioxide Anion Gap BUN Creatinine Estim Creat Clear Calc Estimated GFR Glucose POC Capillary Glucose > 500 mg/dl H* mg/dl (65-105) Hemoglobin A1c > 14.0 % H % (<5.7) Lactic Acid Calcium Phosphorus Magnesium Total Bilirubin AST ALT Alkaline Phosphatase Ammonia Total Creatine Kinase Troponin I Total Protein Albumin Triglycerides Lipase Beta
[2021-01-21 13:54] LABS: Glucose Point of Care 441 mg/dl (65-105)
--- NOTE | 2021-01-21 13:56 | PM.EVENT ---
Event Note Event Note Event Note: Patient's repeat lactic acid level increased to above 7. I sent patient for repeat CT abdomen pelvis to rule out ischemic colitis. CT does not suggest ischemic colitis as to be the etiology. I spoke to Urology regarding increasing lactic acid level and patient having obstructive ureteral stone with UTI. Urologist agrees and plans to take patient to OR for stent placement this afternoon.
[2021-01-21 14:04] LABS: Anion Gap 16 mmol/L (8-16); Blood Urea Nitrogen 33 mg/dL (7-17); Calcium 8.8 mg/dL (8.4-10.2); Carbon Dioxide 20 mmol/L (22-30); Chloride 121 mmol/L (98-107); Estimated CRCL calculation 27 ml/min; Estimated Glomerular Filt Rate 21; Glucose 318 mg/dL (65-110); Potassium 4.1 mmol/L (3.4-5.0); Sodium 157 mmol/L (137-145)
[2021-01-21] MEDS: LIDOCAINE HCL 2% GEL UROJET 10 ML PKG MUCOUS MEM (14:52)
--- NOTE | 2021-01-21 14:55 | W.PM.PROC2 ---
Procedure Note - Detailed Date of Procedure 01/21/21 Pre-op Diagnosis Right ureteral stone, sepsis Post-op Diagnosis same Procedure Performed cystoscopy, right ureteral stent insertion Surgeon Yoel Garcia MD Anesthesia local Findings large right distal ureteral stone Description of Procedure consent was obtained from the patient's nursing staff as the family was not able to be contacted. She was taken the operating room she was prepped and draped in a normal sterile fashion. We inserted a 20 F cystoscope through the urethra into the bladder inspected the bladder there were changes associated with her known infection and previous catheter, there were no tumors noted. Patient had bilateral orthotopic ureteral orifices. We cannulated the right ureteral orifice. There is a large stone in the distal ureter was able to manipulate the wire past the stone we then advanced a 5 F catheter beyond level the stone retrograde pyelogram revealed moderate right hydronephrosis. Over a superstiff wire we placed a 6 F variable length stent with a curl in the upper pole and curl in the bladder. Lott catheter placed. the patient was awakened taken recovery in stable condition Urine Output 100 Drains No Packing No Pathology none sent Complications No immediate complications Condition stable Disposition ICU
[2021-01-21] MEDS: KCL 20 MEQ/D5W 1,000 ML 1,000 ML 100 ML IV CONT (15:10)
[2021-01-21] MEDS: MORPHINE SULFATE (*CRX) 4 MG/ML INJ IV PUSH (15:16)
--- NOTE | 2021-01-21 15:17 | PM.IMPN ---
Progress Note: A&P Assessment and Plan (1) Septic shock: Code(s): A41.9 - Sepsis, unspecified organism; R65.21 - Severe sepsis with septic shock Status: Acute Assessment and Plan: Pateint developed shock felt related to sepsis from the UTI and obstructive uropathy and probably hypovolemia from the DKA and markedly elevated glucose. Lactic was up to 7.3 yesterday but improved earlier but has climbed again to 7.6 possibly related to the obstructed kidney. Contineu IV rehydration. Continue Levophed. Continue IV abx. Wean levophed as BP toelrates. Appreciate neonatal doctor input. (2) Diabetic ketoacidosis: Code(s): E11.10 - Type 2 diabetes mellitus with ketoacidosis without coma Status: Acute Assessment and Plan: Glucose >1875 with BHO 6.5 and pH 7.17. She was admitted ot the ICU and started on DKA protocol. No hx of DM prior to this. GLucose in September was 126. Corect electrolyte abnormalities. Glucose better today. Follow closely. (3) Metabolic encephalopathy: Code(s): G93.41 - Metabolic encephalopathy Status: Acute Assessment and Plan: Patient obtunded on admisison related to the severe hyperglycemia and electrolyte disturbances. Corrected Na 169. Head CT was negative. TSH normal. Ammonia level negative. Contineu to monitor. Watch for withdrawal symptoms (4) Acute kidney injury: Code(s): N17.9 - Acute kidney failure, unspecified Status: Acute Assessment and Plan: Cr 2.8 on admission. Cr 0.88 on 10/07/20. ALBER secondary to septic shock, hypovolemia, DKA and right ureteral obstructing stone. Cr better at 2.4. Monitor UOP. Contineu IV fluids. (5) Urinary tract infection: Code(s): N39.0 - Urinary tract infection, site not specified Status: Acute Assessment and Plan: UA noted. She has obstructive uropathy which could be the etiology of the septic shock. UCx and BCx pending. Continue Primaxin. Adjust abx as needed. Follow up on culture results (6) Ureterolithiasis: Code(s): N20.1 - Calculus of ureter Status: Acute Assessment and Plan: CT A/P showing 13 mm stone of the right distal ureter causing moderate right hydroureteronephrosis. She also with UTI so concerning for obstructive uropathy with pyelonephritis. Patient with septic shock and now with Lactic acid climbing again. Urology consulted and patient taken for stent placement today. Follow up on culture results. Appreciate urology input (7) Acute pancreatitis: Code(s): K85.90 - Acute pancreatitis without necrosis or infection, unspecified Status: Acute Assessment and Plan: Lipase [address] A/P showing enlargement of the pancreas with edematous stranding surrounding much of the peripancreatic fat consistent with acute pancreatitis. She does also have wall thickening to the second portion of the duodenum so consider penetrating duodenal ulcer. s/p CCY. TG 443. LFTs okay except for AP 256. [place] pancreatitis related to the severe metabolic acidosis. Monitor Lipase. NPO. IV fluids. Diffuse hepatic steatosis related to her weight and uncontrolled DM. Repeat CT A/P showing improvement in the significant peripanc stranding. (8) Electrolyte abnormality: Code(s): E87.8 - Other disorders of electrolyte and fluid balance, not elsewhere classified Status: Acute Assessment and Plan: Patient presents with significant severe electrolyte abnormalities. Potassium normal on admission but dropped to <2.0; sodium was 126 but climbing to 157 as glucose level improving; and Phos dropping to 1.4. Potassium normal now. IV fluids being adjusted for the hypernatremia and should even out once glucose improves. Phos being replaced. Monitor electrolytes closely. (9) Abnormal EKG: Code(s): R94.31 - Abnormal electrocardiogram [ECG] [EKG] Status: Acute Assessment and Plan: EKG on admission magdaleno
[2021-01-21 15:44] LABS: Glucose Point of Care 253 mg/dl (65-105)
--- NOTE | 2021-01-21 17:16 | PM.CNCAR ---
Assessment and Plan Assessment and plan (1) Arrhythmia: Code(s): I49.9 - Cardiac arrhythmia, unspecified Status: Acute Assessment and Plan: Patient with a wide complex tachycardia last night lasting for an hour. It sounds like she may have a history of any arrhythmia treated with metoprolol, presumably PSVT. This may have been SVT with aberrancy /bundle branch block pattern or simply sinus tachycardia with a wide complex due to her metabolic abnormalities. It has resolved and not returned. Doubt ventricular tachycardia as the axis was similar to her normal QRS axis. Recommend resuming metoprolol when her blood pressure allows. (2) Abnormal EKG: Code(s): R94.31 - Abnormal electrocardiogram [ECG] [EKG] Status: Acute Assessment and Plan: Abnormalities a likely due to her profound electrolyte abnormalities, DKA etc.. Have resolved. (3) Elevated troponin: Code(s): R77.8 - Other specified abnormalities of plasma proteins Status: Acute Assessment and Plan: Troponin went up to 0.449. Troponin spill due to profound physiologic stressors. No ischemic EKG changes. Normal left ventricular function by Echo. I doubt any further cardiac workup needs to be done. (4) Sepsis: Code(s): A41.9 - Sepsis, unspecified organism Status: Acute Assessment and Plan: Septic shock, on Levophed, improving. (5) Hypokalemia: Code(s): E87.6 - Hypokalemia Status: Acute Assessment and Plan: Profound hypokalemia, improved (6) Diabetic ketoacidosis: Code(s): E11.10 - Type 2 diabetes mellitus with ketoacidosis without coma Status: Acute Assessment and Plan: new onset of diabetes with DKA and severe hyperglycemia, improved History of Present Illness History of Present Illness Consult date/time: 01/21/21 17:16 Reason For Visit: dka, moira, due to sepsis and dka, uti Narrative: Date of service 01/21/2021 Su Bower is a very unfortunate 50-year-old white female whom we were asked to see at the request of the hospitalist for advice and opinion regarding her abnormal EKG and a arrhythmias, in consultation. She has a history of hypertension, anxiety and asthma. Daughter tells me she has a history of fast heartbeats and takes a medication for it (takes metoprolol). The patient was admitted yesterday with septic shock, pancreatitis, new onset diabetes with diabetic ketoacidosis (BS > 1800), metabolic encephalopathy, acute kidney injury with a right ureteral stone causing hydronephrosis which was removed today, and severe hypokalemia with a potassium less than 2.0 on admission. K+ repleted and pt Resuscitated with IV fluids. Currently on Levophed now at 5 mcgs, antibiotics , insulin drip. Last night the pt gradually developed onset of a narrow complex tachycardia rate 160, that changed to a wide complex tachycardia as seen on EKG below. Rate was up to 170-180 at 1 point with an Cameron similar to her usual EKG axis. My associate, DR. lCarke, was called and reviewed the EKG. Later the rate improved, and she had intermittent narrow complex beats then went back to sinus tachycardia with treatment of her underlying problems. No further episodes. DAughter has not noted any CP or SOB at home. Review of Systems Review of Systems: Obtained fr daughter at bedside and EMR ROS unobtainable: Yes unobtainable due to endotracheal tube and unobtainable due to medical condition Constitutional: Constitutional: Reports lethargy Eyes: Eyes: Reports no additional eye complaints ENT: Reports system reviewed and no additional complaints, except as documented Cardiovascular: Cardiovascular: Reports chest pain (left breat pain), Denies leg edema, Den
[2021-01-21 17:29] LABS: Glucose Point of Care 153 mg/dl (65-105)
[2021-01-21 17:29] LABS: Glucose Point of Care 134 mg/dl (65-105)
[2021-01-21 18:03] LABS: Lipase 1869 U/L (23-300)
[2021-01-21 18:04] LABS: Anion Gap 12 mmol/L (8-16); Blood Urea Nitrogen 34 mg/dL (7-17); Calcium 8.6 mg/dL (8.4-10.2); Carbon Dioxide 24 mmol/L (22-30); Chloride 121 mmol/L (98-107); Estimated CRCL calculation 26 ml/min; Estimated Glomerular Filt Rate 20; Glucose 119 mg/dL (65-110); Potassium 4.2 mmol/L (3.4-5.0); Sodium 157 mmol/L (137-145)
[2021-01-21 18:05] LABS: Lactic Acid Reflex 3.4 mmol/L (0.7-2.1)
[2021-01-21 18:23] LABS: Troponin I 0.476 ng/mL (0.000-0.034)
[2021-01-21 18:25] LABS: Glucose Point of Care 123 mg/dl (65-105)
[2021-01-21] MEDS: TOLNAFTATE 1% POWDER 45 GM BTL 1 APPLIC TOPICAL (19:46)
[2021-01-21] MEDS: INSULIN HUMAN REGULAR (*BKC) 100 UNITS in SODIUM CHLORIDE 0.9% IV 99 ML IV CONT (19:51)
[2021-01-21 19:55] LABS: Glucose Point of Care 138 mg/dl (65-105)
--- NOTE | 2021-01-21 20:07 | PC.NURSE ---
Martina HENDRIX notified of positive prelim blood culture. Martina to put in orders.
[2021-01-21 20:46] LABS: Reflex Lactic Acid Yes or No Add Lactic
[2021-01-21 21:51] LABS: Lactic Acid Reflex 2.2 mmol/L (0.7-2.1)
[2021-01-21 21:52] LABS: Anion Gap 9 mmol/L (8-16); Blood Urea Nitrogen 32 mg/dL (7-17); Calcium 8.2 mg/dL (8.4-10.2); Carbon Dioxide 24 mmol/L (22-30); Chloride 123 mmol/L (98-107); Estimated CRCL calculation 23 ml/min; Estimated Glomerular Filt Rate 18; Glucose 107 mg/dL (65-110); Potassium 4.1 mmol/L (3.4-5.0); Sodium 156 mmol/L (137-145)
[2021-01-21 22:25] LABS: Glucose Point of Care 103 mg/dl (65-105)
--- NOTE | 2021-01-21 23:23 | ECHO_ITS ---
Patient Info Name: Su Chew Age: 50 years : 1970 Gender: Female Ht: 64 in HR: 114 bpm BP: 95 / 68 mmHg Heart Rhythm: Tachycardia, Sinus Rhythm Technical Quality: Good Exam Date: 01/21/2021 7:40 AM Exam Location: [facility] Patient Status: Inpatient Admit Date: 01/20/2021 Staff Ordering Physician: Martina Chambers PA-C Chauffeur [employer]bus: Jasper Celis, JENNIFER, RT Attending Provider: Federico Cheatham MD Referring Physician: Reyes GREGORY; Exam Type: CA echo dop color flow w con Study Info Indications R00.0 - Tachycardia, unspecified Complete two-dimensional, color flow and Doppler transthoracic echocardiogram is performed with contrast to opacify the left ventricle and to improve the deliniation of the left ventricle endocardial borders. Summary 1. Normal left ventricular size and thickness with hyperdynamic left ventricular systolic function, EF 70-75%. No focal wall motion abnormalities. Grade 1 diastolic dysfunction is present. 2. Elevated LVOT velocity up to 3 m/sec which is late peaking, consistent with HOCM or, more likely, her hyperdynamic state. No obvious structural evidence of hypertrophic obstructive cardiomyopathy by 2 dimensional imaging noted in this technically difficult study. 3. No significant valve disease. 4. Sinus tachycardia. 5. Technically difficult study; IV definity echo contrast used. Left Ventricle Left ventricular chamber dimension is normal. Left ventricular systolic function is hyperdynamic, estimated at >70%. There is no increased left ventricular wall thickness. Left ventricular septal wall motion is normal. The left ventricular diastolic function is grade I diastolic dysfunction. Right Ventricle Right ventricular chamber dimension is normal. Right ventricular systolic function is normal. Left Atria Left atrial chamber dimension is normal. Right Atria Right atrial chamber dimension is normal. Aortic Valve The aortic valve is trileaflet. There is no aortic valve sclerosis. There is no aortic valve stenosis. There is no aortic valve regurgitation. Pulmonic Valve The pulmonic valve is normal. There is no pulmonic valve stenosis. There is no pulmonic regurgitation. Mitral Valve The mitral valve has normal leaflets. There is no mitral valve stenosis. There is no mitral valve regurgitation. Tricuspid Valve The tricuspid valve leaflets are normal. There is no significant tricuspid valve stenosis. There is trace tricuspid valve regurgitation. No pulmonary hypertension, estimated pulmonary arterial systolic pressure is Empty. Pericardium/Pleural The pericardium appears normal. There is no pericardial effusion. Inferior Vena Cava Normal inferior vena cava with >50% collapse upon inspiration consistent with Empty right atrial pressure, 10 mmHg. Aorta The aortic root size at the sinus of Valsalva is normal. The prox ascending aorta size is normal. Left Ventricular Outflow Tract Name Value Normal LVOT 2D LVOT Diameter 1.96 cm LVOT Doppler LVOT Peak Gradient 6 mmHg LVOT Mean Gradient 2 mmHg
[2021-01-21 23:25] LABS: Glucose Point of Care 157 mg/dl (65-105)
[2021-01-22] VITALS (17 sets, daily range): BP systolic 101–128; BP diastolic 60–108; PULSE 99–119; RESP 1–24; TEMP 37.1–37.9; O2SAT 95–99
[2021-01-22] MEDS: KCL 20 MEQ/D5W 1,000 ML 1,000 ML 100 ML IV CONT (01:31)
[2021-01-22 01:44] LABS: Glucose Point of Care 114 mg/dl (65-105)
[2021-01-22 01:44] LABS: Glucose Point of Care 128 mg/dl (65-105)
[2021-01-22 01:53] LABS: Anion Gap 8 mmol/L (8-16); Blood Urea Nitrogen 33 mg/dL (7-17); Calcium 8.1 mg/dL (8.4-10.2); Carbon Dioxide 24 mmol/L (22-30); Chloride 122 mmol/L (98-107); Estimated CRCL calculation 24 ml/min; Estimated Glomerular Filt Rate 19; Glucose 111 mg/dL (65-110); Potassium 3.9 mmol/L (3.4-5.0); Sodium 154 mmol/L (137-145)
[2021-01-22 03:10] LABS: Glucose Point of Care 116 mg/dl (65-105)
[2021-01-22] MEDS: MORPHINE SULFATE (*CRX) 4 MG/ML INJ IV PUSH (04:11)
[2021-01-22 05:29] LABS: Glucose Point of Care 158 mg/dl (65-105)
[2021-01-22] MEDS: CENTRAL LINE FLUSH 10 ML IV PUSH ×4 (05:35→22:19)
[2021-01-22 05:38] LABS: Hematocrit 38.6 % (37.0-47.0); Hemoglobin 12.7 g/dL (12.0-15.0); Mean Corpuscular HGB Conc 32.9 g/dl (32-36); Mean Corpuscular Volume 91.3 fl (80-100); Mean Platelet Volume 11.5 fl (7.4-10.4); Platelet Count Result 197 k/mm3 (150-375); Red Blood Count 4.23 M/mm3 (4.2-5.4); Red Cell Distribution Width 14.3 % (11.5-14.5); White Blood Count 15.3 K/mm3 (4.5-10.0)
[2021-01-22 05:53] LABS: Alanine Aminotransferase 34 U/L (4-35); Albumin Level 2.6 g/dL (3.5-5.1); Alkaline Phosphatase 139 U/L (38-126); Anion Gap 10 mmol/L (8-16); Aspartate Amino Transferase 67 U/L (14-36); Bilirubin,Total 0.4 mg/dL (0.2-1.3); Blood Urea Nitrogen 32 mg/dL (7-17); Calcium 8.2 mg/dL (8.4-10.2); Carbon Dioxide 23 mmol/L (22-30); Chloride 120 mmol/L (98-107); Estimated CRCL calculation 26 ml/min; Estimated Glomerular Filt Rate 19; Glucose 140 mg/dL (65-110); Lipase 694 U/L (23-300); Phosphorus 2.7 mg/dL (2.5-4.5); Potassium 3.9 mmol/L (3.4-5.0); Sodium 153 mmol/L (137-145)
[2021-01-22 06:29] LABS: Glucose Point of Care 132 mg/dl (65-105)
[2021-01-22] MEDS: TOLNAFTATE 1% POWDER 45 GM BTL 1 APPLIC TOPICAL ×2 (08:11→22:19)
[2021-01-22] MEDS: ENOXAPARIN 30 MG/0.3 ML SYRINGE SUB-Q (08:11)
[2021-01-22] MEDS: PANTOPRAZOLE SODIUM IV 40 MG VIAL IV PUSH (08:12)
[2021-01-22 08:29] LABS: Glucose Point of Care 113 mg/dl (65-105)
[2021-01-22] MEDS: INSULIN GLARGINE (*BKC) 100 UNITS/ML 30 UNITS SUB-Q (08:54)
[2021-01-22 09:05] LABS: Glucose Point of Care 112 mg/dl (65-105)
[2021-01-22 10:11] LABS: Glucose Point of Care 135 mg/dl (65-105)
--- NOTE | 2021-01-22 11:52 | PC.NURSE ---
Updated daughter, Oralia, on patient condition.
[2021-01-22 12:03] LABS: Glucose Point of Care 131 mg/dl (65-105)
[2021-01-22 12:03] LABS: Glucose Point of Care 130 mg/dl (65-105)
--- NOTE | 2021-01-22 12:17 | PCDIET ---
ICU Rounding Note: Patient remains NPO. NG tube has been removed. Expect diet to advance once patient more awake/alert if lipase continues to trend down. Last recorded weight is 94.6kg which is increased from last review. +I/O. Bowel Motility: No documented BM. Labs Reviewed: Lipase (694), WBC (15.3), Glu (140), BUN (32), Cr 92.6), Na (153), Alb (2.6), Cl (120), Jet Ca (9.32) Meds Noted: D5W with 20mEq KCl at 50mL/hr, IV Insulin, Primaxin, Morphine, Protonix, Vancomycin Additional Notes: No documented pressure sores. Following daily in ICU rounds. Assessing/reassessing every 3 days.
--- NOTE | 2021-01-22 12:19 | WPDANESPN ---
Anes - Prog Note Post-Op Date/Time: 01/22/21 12:19 Cardiovascular status: normal Respiratory status: normal Airway patency: baseline Mental status: baseline Post-Op hydration status: normal Vital Signs: Last Vital Signs Temp 37.4 C 01/22/21 10:00 Pulse 108 H 01/22/21 10:00 Resp 12 01/22/21 10:00 BP 110/73 01/22/21 10:00 Pulse Ox 96 01/22/21 10:00 Pain Score (VAS): 2 I/O: Intake & Output 01/21/21 01/22/21 01/22/21 23:59 07:59 15:59 Intake Total 1250 400 Output Total 400 Balance 1250 0 Laboratory Tests 01/22/21 05:23 01/22/21 05:23 01/21/21 01/21/21 01/21/21 11:57 11:57 13:42 WBC RBC Hgb Hct MCV MCH MCHC RDW Plt Count MPV Sodium Potassium Chloride Carbon Dioxide Anion Gap BUN Creatinine Estim Creat Clear Calc Estimated GFR Glucose 541 H* POC Capillary Glucose 441 H Lactic Acid 7.6 H* Calcium Phosphorus Magnesium Total Bilirubin AST ALT Alkaline Phosphatase Troponin I 0.449 H* Total Protein Albumin Lipase 01/21/21 01/21/21 01/21/21 13:50 15:20 16:12 WBC RBC Hgb Hct MCV MCH MCHC RDW Plt Count MPV Sodium 157 H Potassium 4.1 Chloride 121 H Carbon Dioxide 20 L Anion Gap 16 BUN 33 H Creatinine 2.40 H Estim Creat Clear Calc 27 Estimated GFR 21 L Glucose 318 H POC Capillary Glucose 253 H 153 H Lactic Acid Calcium 8.8 Phosphorus Magnesium Total Bilirubin AST ALT Alkaline Phosphatase Troponin I Total Protein Albumin Lipase 01/21/21 01/21/21 01/21/21 17:24 17:29 17:29 WBC RBC Hgb Hct MCV MCH MCHC RDW Plt Count MPV Sodium 157 H Potassium 4.2 Chloride 121 H Carbon Dioxide 24 Anion Gap 12 BUN 34 H Creatinine 2.50 H Estim Creat Clear Calc 26 Estimated GFR 20 L Glucose 119 H POC Capillary Glucose 134 H Lactic Acid 3.4 H Calcium 8.6 Phosphorus Magnesium Total Bilirubin AST ALT Alkaline Phosphatase Troponin I Total Protein Albumin Lipase 01/21/21 01/21/21 01/21/21 17:29 17:29 18:15 WBC RBC Hgb Hct MCV MCH MCHC RDW Plt Count MPV Sodium Potassium Chloride Carbon Dioxide Anion Gap BUN Creatinine Estim Creat Clear Calc Estimated GFR Glucose POC Capillary Glucose 123 H Lactic Acid Calcium Phosphorus Magnesium Total Bilirubin AST ALT Alkaline Phosphatase Troponin I 0.476 H* Total Protein Albumin Lipase 1869 H 01/21/21 01/21/21 01/21/21 19:41 21:27 21:35 WBC RBC Hgb Hct MCV MCH MCHC RDW Plt Count MPV Sodium 156 H Potassium 4.1 Chloride 123 H Carbon Dioxide 24 Anion Gap 9 BUN 32 H Creatinine 2.80 H Estim Creat Clear Calc 23 Estimated GFR 18 L Glucose 107 POC Capillary Glucose 138 H 103 Lactic Acid Calcium 8.2 L Phosphorus Magnesium Total Bilirubin AST ALT Alkaline Phosphatase Troponin I Total Protein Albumin Lipase 01/21/21 01/21/21 01/22/21 21:35 23:06 00:19 WBC RBC Hgb Hct MCV MCH MCHC RDW Plt Count MPV Sodium Potassium Chloride Carbon Dioxide Anion Gap BUN Creatinine Estim Creat Clear Calc Estimated GFR Glucose POC Capillary Glucose 157 H 128 H Lactic Acid 2.2 H Calcium Phosphorus Magnesium Total Bilirubin AST ALT Alkaline Phosphatase Troponin I Total Protein Albumin Lipase 01/22/21 01/22/21 01/22/21 01:37 01:40 03:06 WBC RBC Hgb Hct MCV MCH MCHC RDW Plt Count MPV Sodium 154 H Potassium 3.9 Chloride 1
--- NOTE | 2021-01-22 13:02 | PM.IMPN ---
Progress Note: A&P Assessment and Plan (1) Septic shock: Code(s): A41.9 - Sepsis, unspecified organism; R65.21 - Severe sepsis with septic shock Status: Acute Assessment and Plan: Pateint developed shock felt related to sepsis from obstructive uropathy and probably hypovolemia from the DKA and markedly elevated glucose. Lactic was up to 7.6 possibly related to the obstructed kidney. Lactic acid down to 2.2. BCx (1of2) growing Coag Negative Staph probably contaminated. Able to be weaned down off Levophed. Continue IV rehydration. Continue IV abx. Appreciate laborer general input. (2) Diabetic ketoacidosis: Code(s): E11.10 - Type 2 diabetes mellitus with ketoacidosis without coma Status: Acute Assessment and Plan: Glucose >1875 with BHO 6.5 and pH 7.17. She was admitted ot the ICU and started on DKA protocol. No hx of DM prior to this. Glucose in September was 126. Correcting electrolyte abnormalities. Glucose better today. Follow closely. (3) Diabetes mellitus, new onset: Code(s): E11.9 - Type 2 diabetes mellitus without complications Status: Acute Assessment and Plan: A1c > 14. Patient with newly diagnosed DM. Will most likely need insulin at discharge. Biomedical Field Service Engineer and [employer] Engineer to see. Change to Lantus when able. (4) Metabolic encephalopathy: Code(s): G93.41 - Metabolic encephalopathy Status: Acute Assessment and Plan: Patient obtunded on admisison related to the severe hyperglycemia and electrolyte disturbances. Corrected Na 169. Head CT was negative. TSH normal. Ammonia level negative. Condition better today but not at baseline. Continue to monitor. Watch for withdrawal symptoms (5) Acute kidney injury: Code(s): N17.9 - Acute kidney failure, unspecified Status: Acute Assessment and Plan: Cr 2.8 on admission. Cr 0.9 on 10/07/20. ALBER secondary to septic shock, hypovolemia, DKA and right ureteral obstructing stone. Cr about the same at 2.6. Monitor UOP. Continue IV fluids. (6) Urinary tract infection: Code(s): N39.0 - Urinary tract infection, site not specified Status: Acute Assessment and Plan: UA noted. She has obstructive uropathy which could be the etiology of the septic shock. UCx negative. (7) Ureterolithiasis: Code(s): N20.1 - Calculus of ureter Status: Acute Assessment and Plan: CT A/P showing 13 mm stone of the right distal ureter causing moderate right hydroureteronephrosis. She also with obstructive uropathy. Patient with septic shock and now with Lactic acid climbing again. Urology consulted and patient taken for stent placement 01/21. UCx negative. Appreciate urology input (8) Acute pancreatitis: Code(s): K85.90 - Acute pancreatitis without necrosis or infection, unspecified Status: Acute Assessment and Plan: Lipase [address] A/P showing enlargement of the pancreas with edematous stranding surrounding much of the peripancreatic fat consistent with acute pancreatitis. She does also have wall thickening to the second portion of the duodenum so consider penetrating duodenal ulcer. s/p CCY. TG 443. LFTs noted. Reasnor pancreatitis related to the severe metabolic acidosis. Lipase trending down. Remains NPO. Continue IV fluids. Diffuse hepatic steatosis related to her weight and uncontrolled DM. Repeat CT A/P showing improvement in the significant peripanc stranding. (9) Electrolyte abnormality: Code(s): E87.8 - Other disorders of electrolyte and fluid balance, not elsewhere classified Status: Acute Assessment and Plan: Patient presents with significant severe electrolyte abnormalities. Potassium normal on admission but dropped to <2.0; sodium was 126 but climbing to 157 as glucose level improving; and Phos dropping to 1.4. Potassium normal now and Na better at 153. IV fluids being adjusted for the
[2021-01-22 13:21] LABS: Glucose Point of Care 114 mg/dl (65-105)
--- NOTE | 2021-01-22 14:03 | WPDINTPN ---
Progress Note: A&P Assessment and Plan (1) Septic shock: Code(s): A41.9 - Sepsis, unspecified organism; R65.21 - Severe sepsis with septic shock Status: Acute Assessment and Plan: septic shock secondary to UTI. And also has pancreatitis urine and blood cultures done. blood culture 1/2 is growing coag-negative staph which is likely contaminant patient received aggressive volume resuscitation and now down to D5 water at 50 mL/hour Levophed was weaned off this morning and will continue to monitor lactic acid level has improved echocardiogram reviewed (2) Diabetic ketoacidosis: Code(s): E11.10 - Type 2 diabetes mellitus with ketoacidosis without coma Status: Acute Assessment and Plan: IV fluid bolus and infusion her anion gap has closed but she is still requiring significant amount of insulin. Continue insulin infusion Lantus subq given serial BMPs but less frequent (3) Metabolic encephalopathy: Code(s): G93.41 - Metabolic encephalopathy Status: Acute Assessment and Plan: head CT was negative TSH normal likely toxic metabolic encephalopathy which is slowly improved normal ammonia level (4) Acute kidney injury: Code(s): N17.9 - Acute kidney failure, unspecified Status: Acute Assessment and Plan: likely secondary to sepsis, hypovolemia, right ureteral stone causing hydronephrosis status post stent placement continue IV fluids baseline creatinine unknown as patient may have chronic disease as her creatinine has not significantly improved despite all the volume resuscitation and stent placement monitor urine output and electrolytes (5) Urinary tract infection: Code(s): N39.0 - Urinary tract infection, site not specified Status: Acute Assessment and Plan: urine culture and blood cultures imipenem (6) Ureterolithiasis: Code(s): N20.1 - Calculus of ureter Status: Acute Assessment and Plan: urology consulted and patient had stent placement on 01/21 (7) Acute pancreatitis: Code(s): K85.90 - Acute pancreatitis without necrosis or infection, unspecified Status: Acute Assessment and Plan: lipase 7231 on presentation which has now improved to 694 CT confirmed diagnosis of pancreatitis start clear liquids her triglyceride levels elevated but not high enough to cause pancreatitis CT abdomen shows as patient is status post cholecystectomy. bilirubin is normal (8) Electrolyte abnormality: Code(s): E87.8 - Other disorders of electrolyte and fluid balance, not elsewhere classified Status: Acute Assessment and Plan: significant severe electrolyte abnormalities. although patient was hyponatremic her corrected sodium was high suggestive of significant intravascular volume depletion. Patient initially received normal saline for volume resuscitation as patient was also in sepsis. her corrected sodium initially increased until patient was switched to half-normal saline. patient had developed hypokalemia and that led to stopping of insulin drip multiple times in 1st 12-24 hours. Hypokalemia had to aggressively replaced eventually once sugars became reasonable she was transition to D5 water. sodium has been slowly improving and is down to 153 today. using corrected sodium numbers the correction seems to be on the right track. 11-12 points over 36 hours. Continue D5 water but decreased to 50 mL per hour to continue slowly correcting sodium to below 150. Q 8 hour BMPs to be continue (9) Abnormal EKG: Code(s): R94.31 - Abnormal electrocardiogram [ECG] [EKG] Status: Acute Assessment and Plan: abnormal EKG on presentation. although history was limited there was no mention of any chest pain by patient or her daughter 1st troponin was negative but repeat was marginally elevated which is likely demand ischemia. Troponin remained flat thi
[2021-01-22 14:16] LABS: Glucose Point of Care 128 mg/dl (65-105)
[2021-01-22] MEDS: KCL 20 MEQ/D5W 1,000 ML 1,000 ML 50 ML IV CONT (15:09)
[2021-01-22 16:17] LABS: Glucose Point of Care 118 mg/dl (65-105)
[2021-01-22 16:17] LABS: Glucose Point of Care 111 mg/dl (65-105)
[2021-01-22 17:18] LABS: Glucose Point of Care 117 mg/dl (65-105)
[2021-01-22 18:03] LABS: Troponin I 0.101 ng/mL (0.000-0.034)
[2021-01-22 18:20] LABS: Anion Gap 8 mmol/L (8-16); Blood Urea Nitrogen 33 mg/dL (7-17); Calcium 7.7 mg/dL (8.4-10.2); Carbon Dioxide 22 mmol/L (22-30); Chloride 119 mmol/L (98-107); Estimated CRCL calculation 28 ml/min; Estimated Glomerular Filt Rate 21; Glucose 124 mg/dL (65-110); Potassium 4.3 mmol/L (3.4-5.0); Sodium 149 mmol/L (137-145)
[2021-01-22 18:57] LABS: Glucose Point of Care 120 mg/dl (65-105)
[2021-01-22 20:37] LABS: Glucose Point of Care 106 mg/dl (65-105)
--- NOTE | 2021-01-22 20:40 | PM.PNCARD ---
Progress Note: A&P Assessment and Plan (1) Abnormal EKG: Code(s): R94.31 - Abnormal electrocardiogram [ECG] [EKG] Status: Acute Assessment and Plan: Abnormalities a likely due to her profound electrolyte abnormalities, DKA etc.. Have resolved. (2) Arrhythmia: Code(s): I49.9 - Cardiac arrhythmia, unspecified Status: Acute Assessment and Plan: Patient with a wide complex tachycardia 01/20/2021 lasting for an hour. It sounds like she may have a history of any arrhythmia treated with metoprolol, presumably PSVT. This may have been an SVT with aberrancy /bundle branch block pattern or simply sinus tachycardia with a wide complex due to her metabolic abnormalities. It has resolved and has not returned. Doubt ventricular tachycardia as the axis was similar to her normal QRS axis. Recommend resuming metoprolol when her blood pressure allows. (3) Elevated troponin: Code(s): R77.8 - Other specified abnormalities of plasma proteins Status: Acute Assessment and Plan: Troponin went up to 0.449. Troponin spill due to profound physiologic stressors abd demand ischemia. Nonspecific EKG changes; No ischemic EKG changes. Normal left ventricular function by Echo. No cardiac workup needs to be done. (4) Sepsis: Code(s): A41.9 - Sepsis, unspecified organism Status: Acute Assessment and Plan: Septic shock, on Levophed, improving. Encephalopathy improving (5) Hypokalemia: Code(s): E87.6 - Hypokalemia Status: Acute Assessment and Plan: Profound hypokalemia, improved (6) Diabetic ketoacidosis: Code(s): E11.10 - Type 2 diabetes mellitus with ketoacidosis without coma Status: Acute Assessment and Plan: new onset of diabetes with DKA and severe hyperglycemia, improved Additional Plan No further cardiac recommendations. Will sign off but please call if further questions or problems. Thank you for your kind referral. Subjective Date/time seen: Follow-up for elevated troponin, abnormal EKG, arrhythmia Date of service 01/22/21: Patient continues to improve, More awake, Levophed nearly off. No arrhythmias on telemetry. Denies any history of chest pain or heart disease. Review of Systems Constitutional: Constitutional: Reports fatigue and Reports weakness ENT: Denies epistaxis Cardiovascular: Cardiovascular: Denies chest pain and Denies palpitations Respiratory: Respiratory: Denies dyspnea and Denies dyspnea on exertion Gastrointestinal: Gastrointestinal: Denies abdominal pain Genitourinary: Genitourinary: Denies flank pain Musculoskeletal: Musculoskeletal: Denies back pain Integumentary/Breasts: Skin/Breast: Denies rash Neurologic: Reports confusion Psychiatric: Psychiatric: Reports confusion Exam Const: General: comfortable and no acute distress HENMT: Mouth: Yes moist mucous membranes Eyes: EOM: EOMs intact bilaterally Neck: Neck: supple Resp: Effort & Inspection: normal respiratory effort Auscultation: clear to auscultation bilaterally Cardio: Rate: regular rate Rhythm: regular rhythm Heart sounds: no murmurs GI: GI Palp: Yes Soft to palpation and No Tenderness to palpation present (GI) Skin: General skin exam: normal color Neuro: Cognition (Neuro): abnormal cognition Other: Patient awake, confused about her situation, repeats the same questions but is aware she is at the hospital in [place] and that iit is December. Extrem: General: no edema and no pedal edema Psych: Mental Status: mental status grossly abnormal Object
[2021-01-22] MEDS: CALCIUM CHLOR 1,000MG/100ML NS 1,000 MG/100 ML BAG 100 MG IVPB (21:21)
[2021-01-22 21:37] LABS: Glucose Point of Care 107 mg/dl (65-105)
[2021-01-22 22:13] LABS: Glucose Point of Care 110 mg/dl (65-105)
[2021-01-22] MEDS: MICONAZOLE NITRATE 2% VAGINAL CREAM 45 GM TUBE 1 APPFUL VAGINAL (22:18)
[2021-01-22] MEDS: INSULIN HUMAN REGULAR (*BKC) 100 UNITS in SODIUM CHLORIDE 0.9% IV 99 ML IV CONT (23:10)
[2021-01-22 23:15] LABS: Glucose Point of Care 106 mg/dl (65-105)
[2021-01-23] VITALS (13 sets, daily range): BP systolic 101–142; BP diastolic 58–88; PULSE 91–116; RESP 14–21; TEMP 36.1–37.7; O2SAT 96–98
[2021-01-23 00:04] LABS: Glucose Point of Care 96 mg/dl (65-105)
[2021-01-23] MEDS: ONDANSETRON INJ 4 MG/2 ML VIAL IV PUSH ×3 (02:49→21:26)
[2021-01-23 05:46] LABS: Hematocrit 38.3 % (37.0-47.0); Hemoglobin 12.1 g/dL (12.0-15.0); Mean Corpuscular HGB Conc 31.6 g/dl (32-36); Mean Corpuscular Hemoglobin 29.4 pg (26-34); Mean Platelet Volume 11.2 fl (7.4-10.4); Platelet Count Result 159 k/mm3 (150-375); Red Blood Count 4.12 M/mm3 (4.2-5.4); White Blood Count 14.2 K/mm3 (4.5-10.0)
[2021-01-23 05:59] LABS: Lactic Acid Reflex 1.2 mmol/L (0.7-2.1)
[2021-01-23 06:02] LABS: Alanine Aminotransferase 32 U/L (4-35); Albumin Level 2.7 g/dL (3.5-5.1); Alkaline Phosphatase 143 U/L (38-126); Anion Gap 12 mmol/L (8-16); Aspartate Amino Transferase 54 U/L (14-36); Bilirubin,Total 0.7 mg/dL (0.2-1.3); Blood Urea Nitrogen 34 mg/dL (7-17); Calcium 8.9 mg/dL (8.4-10.2); Carbon Dioxide 19 mmol/L (22-30); Chloride 112 mmol/L (98-107); Estimated CRCL calculation 28 ml/min; Estimated Glomerular Filt Rate 21; Glucose 310 mg/dL (65-110); Lipase 234 U/L (23-300); Magnesium 2.1 mg/dL (1.6-2.3); Phosphorus 3.4 mg/dL (2.5-4.5); Potassium 5.9 mmol/L (3.4-5.0); Sodium 143 mmol/L (137-145)
[2021-01-23] MEDS: INSULIN ASPART (*BKC) 100 UNITS/ML SUB-Q ×4 (06:16→17:31)
[2021-01-23] MEDS: CENTRAL LINE FLUSH 10 ML IV PUSH ×2 (06:17→15:13)
[2021-01-23 06:25] LABS: Glucose Point of Care 270 mg/dl (65-105)
[2021-01-23 08:56] LABS: Anion Gap 11 mmol/L (8-16); Blood Urea Nitrogen 36 mg/dL (7-17); Calcium 8.8 mg/dL (8.4-10.2); Carbon Dioxide 20 mmol/L (22-30); Chloride 111 mmol/L (98-107); Estimated CRCL calculation 27 ml/min; Estimated Glomerular Filt Rate 20; Glucose 344 mg/dL (65-110); Potassium 5.4 mmol/L (3.4-5.0); Sodium 142 mmol/L (137-145)
[2021-01-23] MEDS: SODIUM POLYSTYRENE SULFONONATE 15 GM/60 ML BTL 30 GM PO ×2 (10:04→15:13)
[2021-01-23] MEDS: INSULIN GLARGINE (*BKC) 100 UNITS/ML 40 UNITS SUB-Q (10:04)
[2021-01-23] MEDS: ENOXAPARIN 30 MG/0.3 ML SYRINGE SUB-Q (10:04)
[2021-01-23] MEDS: TOLNAFTATE 1% POWDER 45 GM BTL 1 APPLIC TOPICAL ×2 (10:05→21:27)
[2021-01-23] MEDS: PANTOPRAZOLE SODIUM IV 40 MG VIAL IV PUSH (10:05)
--- NOTE | 2021-01-23 11:36 | PCDIET ---
Nutrition Follow-Up Complete: Nutrition Diagnosis: Altered nutrition related labs related to diabetes mellitus as evidenced by HgbA1C of greater than 14%. Nutrition Goal: Patient to meet estimated nutritional needs. Goal in progress. MD order to start clear liquids and advance diet as tolerated. Patient states eager to start diet. RN reports emesis with Kayexalate earlier today but no GI c/o during visit. Small, frequent meals suggested. Carbohydrate counting education provided. See Nutritional Teaching for additional details. Last recorded weight is 95.2 kg which is increased from last review. +I/O. Bowel Motility: No documented BM as of yet. Labs Reviewed: WBC (14.2), RBC (4.12), Glu (344), BUN (36), Cr (2.5), K (5.4), Alb (2.7), Cl (111), Lipase (234) Meds Noted: Primaxin, Kayexalate, Novolog, Lantus, Morphine, Zofran, Sodium Bicarbonate Additional Notes: No documented skin breakdown. Will continue to monitor with same goal. Nutrition Monitoring and Evaluation: Follow up every 3 days.
[2021-01-23 12:25] LABS: Glucose Point of Care 277 mg/dl (65-105)
--- NOTE | 2021-01-23 13:22 | PCOTNOTE ---
Attempted OT evaluation, per RN femoral line is still in place at this time, will follow and complete OT evaluation when femoral line is removed.
--- NOTE | 2021-01-23 14:50 | WPDINTPN ---
Progress Note: A&P Assessment and Plan (1) Septic shock: Code(s): A41.9 - Sepsis, unspecified organism; R65.21 - Severe sepsis with septic shock Status: Acute Assessment and Plan: septic shock secondary to UTI. And also has pancreatitis urine and blood cultures done. blood culture 1/2 is growing coag-negative staph which is likely contaminant patient received aggressive volume resuscitation now off of fluids Levophed was weaned off lactic acid level has improved echocardiogram reviewed (2) Diabetic ketoacidosis: Code(s): E11.10 - Type 2 diabetes mellitus with ketoacidosis without coma Status: Acute Assessment and Plan: IV fluid bolus and infusion her anion gap has closed and patient was transitioned to subcutaneous insulin continue Lantus and sliding scale Lantus increased to 40 units (3) Metabolic encephalopathy: Code(s): G93.41 - Metabolic encephalopathy Status: Acute Assessment and Plan: head CT was negative TSH normal likely toxic metabolic encephalopathy which has improved normal ammonia level (4) Acute kidney injury: Code(s): N17.9 - Acute kidney failure, unspecified Status: Acute Assessment and Plan: likely secondary to sepsis, hypovolemia, right ureteral stone causing hydronephrosis status post stent placement baseline creatinine unknown as patient may have chronic disease as her creatinine has not significantly improved despite all the volume resuscitation and stent placement monitor urine output and electrolytes (5) Urinary tract infection: Code(s): N39.0 - Urinary tract infection, site not specified Status: Acute Assessment and Plan: urine culture and blood cultures negative so far imipenem (6) Ureterolithiasis: Code(s): N20.1 - Calculus of ureter Status: Acute Assessment and Plan: urology consulted and patient had stent placement on 01/21 (7) Acute pancreatitis: Code(s): K85.90 - Acute pancreatitis without necrosis or infection, unspecified Status: Acute Assessment and Plan: lipase 7231 on presentation which has now normalized CT confirmed diagnosis of pancreatitis advance diet as tolerated her triglyceride levels elevated but not high enough to cause pancreatitis CT abdomen shows as patient is status post cholecystectomy. bilirubin is normal (8) Electrolyte abnormality: Code(s): E87.8 - Other disorders of electrolyte and fluid balance, not elsewhere classified Status: Acute Assessment and Plan: presented with significant severe electrolyte abnormalities. now most of them has resolved monitor potassium was a little high. Patient did receive aggressive potassium replacement earlier in the course patient was given Kayexalate this morning but she has pitted out. Now the patient is eating oral diet, will give another dose (9) Abnormal EKG: Code(s): R94.31 - Abnormal electrocardiogram [ECG] [EKG] Status: Acute Assessment and Plan: Abnormal EKG on presentation. although history was limited there was no mention of any chest pain by patient or her daughter 1st troponin was negative but repeat was marginally elevated which is likely demand ischemia. Troponin remained flat this is likely secondary to significant metabolic and electrolyte derangement repeat EKG was reviewed and showed no ST elevation cardiology following echo done and report reviewed Additional Plan DVT prophylaxis - Lovenox Stress ulcer prophylaxis - at PPI Nutrition - clear liquids advance as tolerated Code Status - Full Code Transfer out of ICU today Subjective Date/time seen: 01/23/21 14:50 Patient is much more awake today. She today feels much better as compared to yesterday and states that she is hungry and would like to eat food. Patient denies fever, chest pain, shortness of breath, cough, nausea vomiting,
[2021-01-23] MEDS: NEOMYCIN/POLYMYXIN/BACITRACIN OINTMENT PACKET 1 PACKET (16:14)
--- NOTE | 2021-01-23 16:18 | PM.IMPN ---
Progress Note: A&P Assessment and Plan (1) Septic shock: Code(s): A41.9 - Sepsis, unspecified organism; R65.21 - Severe sepsis with septic shock Status: Acute Assessment and Plan: Pateint developed shock felt related to sepsis from obstructive uropathy and probably hypovolemia from the DKA and markedly elevated glucose. Lactic was up to 7.6 possibly related to the obstructed kidney. Lactic acid normal now. BCx (1of2) growing Coag Negative Staph probably contaminated. Able to be wean off Levophed. Repeat BCx. (2) Diabetic ketoacidosis: Code(s): E11.10 - Type 2 diabetes mellitus with ketoacidosis without coma Status: Acute Assessment and Plan: Glucose >1875 with BHO 6.5 and pH 7.17. She was admitted ot the ICU and started on DKA protocol. No hx of DM prior to this. Glucose in September was 126. Correcting electrolyte abnormalities. Glucose better today but more elevated. Follow closely. (3) Diabetes mellitus, new onset: Code(s): E11.9 - Type 2 diabetes mellitus without complications Status: Acute Assessment and Plan: A1c > 14. Patient with newly diagnosed DM. Will most likely need insulin at discharge. Baseball Umpire [employer] and [employer]og[employer] to see. Changed to Lantus. Add Novolog at meal times (4) Metabolic encephalopathy: Code(s): G93.41 - Metabolic encephalopathy Status: Acute Assessment and Plan: Patient obtunded on admisison related to the severe hyperglycemia and electrolyte disturbances. Corrected Na 169. Head CT was negative. TSH normal. Ammonia level negative. Condition improving. Continue to monitor. (5) Acute kidney injury: Code(s): N17.9 - Acute kidney failure, unspecified Status: Acute Assessment and Plan: Cr 2.8 on admission. Cr 0.9 on 10/07/20. ALBER secondary to septic shock, hypovolemia, DKA and right ureteral obstructing stone. Cr about the same at 2.4. Monitor UOP. (6) Urinary tract infection: Code(s): N39.0 - Urinary tract infection, site not specified Status: Acute Assessment and Plan: UA noted. UCx negative. UTI ruled out. (7) Ureterolithiasis: Code(s): N20.1 - Calculus of ureter Status: Acute Assessment and Plan: CT A/P showing 13 mm stone of the right distal ureter causing moderate right hydroureteronephrosis. Patient with shock; lactic acid normal now. Urology consulted and patient taken for stent placement 01/21. UCx negative. Appreciate urology input (8) Acute pancreatitis: Code(s): K85.90 - Acute pancreatitis without necrosis or infection, unspecified Status: Acute Assessment and Plan: Lipase [address] A/P showing enlargement of the pancreas with edematous stranding surrounding much of the peripancreatic fat consistent with acute pancreatitis. She does also have wall thickening to the second portion of the duodenum so consider penetrating duodenal ulcer. s/p CCY. TG 443. LFTs noted. Silt pancreatitis related to the severe metabolic acidosis. Lipase normal now. Continue IV fluids. Diffuse hepatic steatosis related to her weight and uncontrolled DM. Repeat CT A/P showing improvement in the significant peripanc stranding. Clears started and appears to be toelrating. Follow. (9) Electrolyte abnormality: Code(s): E87.8 - Other disorders of electrolyte and fluid balance, not elsewhere classified Status: Acute Assessment and Plan: Patient presents with significant severe electrolyte abnormalities. Potassium normal on admission but dropped to <2.0; sodium was 126 but climbing to 157 as glucose level improving; and Phos dropping to 1.4. Potassium now at 5.9 with Na better at 143. Mag normal. Monitor electrolytes closely. Kayexalate ordered. Follow potassium (10) Arrhythmia: Code(s): I49.9 - Cardiac arrhythmia, unspecified Status: Acute Assessment and Plan: Patient had a wid
[2021-01-23 16:24] LABS: Glucose Point of Care 396 mg/dl (65-105)
[2021-01-23] MEDS: INSULIN ASPART (*BKC) 100 UNITS/ML 6 UNITS SUB-Q (17:31)
[2021-01-23] MEDS: SODIUM BICARBONATE TAB 650 MG TABLET 1300 MG PO (17:33)
[2021-01-23] MEDS: MICONAZOLE NITRATE 2% VAGINAL CREAM 45 GM TUBE 1 APPFUL VAGINAL (21:26)
[2021-01-23 21:52] LABS: Potassium 3.9 mmol/L (3.4-5.0)
[2021-01-23 22:13] LABS: Glucose Point of Care 310 mg/dl (65-105)
[2021-01-24] VITALS (16 sets, daily range): BP systolic 123–146; BP diastolic 70–80; PULSE 68–124; RESP 14–22; TEMP 36–37.3; O2SAT 95–98
[2021-01-24] MEDS: ONDANSETRON INJ 4 MG/2 ML VIAL IV PUSH ×4 (04:36→22:18)
[2021-01-24 07:47] LABS: Hemoglobin 12.1 g/dL (12.0-15.0); Mean Corpuscular HGB Conc 31.8 g/dl (32-36); Mean Corpuscular Hemoglobin 30.1 pg (26-34); Mean Corpuscular Volume 94.5 fl (80-100); Mean Platelet Volume 11.4 fl (7.4-10.4); Platelet Count Result 131 k/mm3 (150-375); Red Blood Count 4.02 M/mm3 (4.2-5.4); Red Cell Distribution Width 14.9 % (11.5-14.5)
[2021-01-24 07:50] LABS: Alanine Aminotransferase 24 U/L (4-35); Albumin Level 2.5 g/dL (3.5-5.1); Alkaline Phosphatase 138 U/L (38-126); Anion Gap 7 mmol/L (8-16); Aspartate Amino Transferase 36 U/L (14-36); Bilirubin,Total 0.5 mg/dL (0.2-1.3); Blood Urea Nitrogen 31 mg/dL (7-17); Calcium 8.3 mg/dL (8.4-10.2); Carbon Dioxide 24 mmol/L (22-30); Chloride 111 mmol/L (98-107); Estimated CRCL calculation 38 ml/min; Estimated Glomerular Filt Rate 30; Glucose 313 mg/dL (65-110); Magnesium 2.2 mg/dL (1.6-2.3); Phosphorus 3.4 mg/dL (2.5-4.5); Potassium 4.1 mmol/L (3.4-5.0); Sodium 142 mmol/L (137-145)
--- NOTE | 2021-01-24 07:53 | PM.IMPN ---
Progress Note: A&P Assessment and Plan (1) Septic shock: Code(s): A41.9 - Sepsis, unspecified organism; R65.21 - Severe sepsis with septic shock Status: Acute Assessment and Plan: Pateint developed shock felt related to sepsis from obstructive uropathy and probably hypovolemia from the DKA and markedly elevated glucose. Lactic was up to 7.6 possibly related to the obstructed kidney. Lactic acid down to 2.2. BCx (1of2) growing Coag Negative Staph probably contaminated. Able to be weaned down off Levophed. Continue IV rehydration. Continue IV abx. Appreciate central lab technician input. (2) Diabetic ketoacidosis: Code(s): E11.10 - Type 2 diabetes mellitus with ketoacidosis without coma Status: Acute Assessment and Plan: Glucose >1875 with BHO 6.5 and pH 7.17. She was admitted ot the ICU and started on DKA protocol. No hx of DM prior to this. Glucose in September was 126. Correcting electrolyte abnormalities. Adjust the dose of insulin. Follow closely. (3) Diabetes mellitus, new onset: Code(s): E11.9 - Type 2 diabetes mellitus without complications Status: Acute Assessment and Plan: A1c > 14. Patient with newly diagnosed DM. Will need insulin at discharge. Furnace Charging Machine Operator and Chainstitch Seat Joiner to see. Fingerstick sugars still elevated. I will increase the dose of Lantus to 44 units. Continue insulin sliding scale. Continue to monitor fingerstick sugar closely. (4) Metabolic encephalopathy: Code(s): G93.41 - Metabolic encephalopathy Status: Acute Assessment and Plan: Patient obtunded on admisison related to the severe hyperglycemia and electrolyte disturbances. Corrected Na 169. Head CT was negative. TSH normal. Ammonia level negative. Her mental status has improved significantly and seemed to be at her baseline now. Continue to monitor. Watch for withdrawal symptoms (5) Acute kidney injury: Code(s): N17.9 - Acute kidney failure, unspecified Status: Acute Assessment and Plan: Cr 2.8 on admission. Cr 0.9 on 10/07/20. ALBER secondary to septic shock, hypovolemia, DKA and right ureteral obstructing stone. Creatinine is trending down and was 1.8 today. Monitor UOP. Continue IV fluids. (6) Urinary tract infection: Code(s): N39.0 - Urinary tract infection, site not specified Status: Acute Assessment and Plan: UA noted. She has obstructive uropathy which could be the etiology of the septic shock. UCx negative. Will stop imipenem in 5-7 days in total and will consider to stop that tomorrow if her clinical status remains stable. Cultures remain nega (7) Ureterolithiasis: Code(s): N20.1 - Calculus of ureter Status: Acute Assessment and Plan: CT A/P showing 13 mm stone of the right distal ureter causing moderate right hydroureteronephrosis. She also with obstructive uropathy. Urology consulted and patient taken for stent placement 01/21. UCx negative. Appreciate urology input (8) Acute pancreatitis: Code(s): K85.90 - Acute pancreatitis without necrosis or infection, unspecified Status: Acute Assessment and Plan: Lipase [address] A/P showing enlargement of the pancreas with edematous stranding surrounding much of the peripancreatic fat consistent with acute pancreatitis. She does also have wall thickening to the second portion of the duodenum so consider penetrating duodenal ulcer. s/p CCY. TG 443. LFTs noted. [place] pancreatitis related to the severe metabolic acidosis. Lipase trending down. will start her on clear/full liquid diet and advance the diet as if she is able to tolerated. Continue IV fluids. Diffuse hepatic steatosis related to her weight and uncontrolled DM. Repeat CT A/P showing improvement in the significant peripancreatic fat stranding. (9) Electrolyte abnormality: Code(s): E87.8 - Other disorders of electrolyte and fluid balanc
[2021-01-24] MEDS: FLUTICASONE PROP 220 MCG (*SP) 12 GM INHALER 2 PUFF INHALATION ×2 (08:14→20:13)
--- NOTE | 2021-01-24 09:00 | PM.PNCARD ---
Progress Note: A&P Additional Plan 50-year-old lady with: Newly diagnosed diabetes presenting with profound ketoacidosis several days ago now much more stable. In that setting patient had elevated troponin level which of course is not surprising and was having tachyarrhythmias. Echocardiogram did not demonstrate any significant structural cardiac abnormalities. Metoprolol has been started now that she is more stable and there are no additional cardiac issues that are apparent to me. We will sign off her case at this time and please let me know if there are cardiac issues or questions that require my assistance. Aguilar Phan MD [facility] Subjective Date/time seen: date of service:01/24/21 09:00 Interval history: Follow-up visit in this 50-year-old lady with: Troponinemia and tachyarrhythmias in the setting of new onset diabetes with profound hyperglycemia and diabetic ketoacidosis presenting in shock. Patient seems to be doing much better she is out IMU feeling well offers no cardiovascular complaints. Metoprolol has been started as per our previous recommendations. Exam Narrative: A comfortable white female supine in bed offers no complaints asking if she can have some food Const: General: comfortable, no acute distress and confusion Orientation/consciousness: confusion HENMT: Mouth: Yes moist mucous membranes and Yes dry mucous membranes Eyes: EOM: EOMs intact bilaterally Neck: Neck: supple and no JVD Thyroid: thyroid normal Carotids: no bruits Lymphatic: lymphadenopathy not noted Resp: Effort & Inspection: normal respiratory effort Auscultation: clear to auscultation bilaterally Cardio: Rate: regular rate Rhythm: regular rhythm Heart sounds: no murmurs Other: Intact pedal pulses GI: Inspection: non-distended Auscultation: abnormal bowel sounds ( absent) Skin: General skin exam: normal color and no rashes or lesions noted Neuro: General: confusion Cognition (Neuro): abnormal cognition Other: Patient awake, confused about her situation, repeats the same questions but is aware she is at the hospital in [place] and that iit is December. Extrem: General: no edema and no pedal edema Psych: Mental Status: mental status grossly abnormal Affect: No normal affect Objective Data Vital Signs Vital Signs: Vital Signs - 24 hr 01/23/21 10:00 01/23/21 12:00 01/23/21 13:03 Temperature 37.5 C 37.6 C H Pulse Rate 96 100 Respiratory Rate 14 16 Blood Pressure 130/80 129/75 Pulse Oximetry 97 96 96 01/23/21 14:00 01/23/21 16:00 01/23/21 18:00 Temperature 37.7 C H 37.1 C Pulse Rate 103 H 94 97 Respiratory Rate 17 16 Blood Pressure 118/76 122/67 Pulse Oximetry 97 96 01/23/21 20:00 01/23/21 22:00 01/24/21 00:00 Temperature 36.1 C L 36.4 C Pulse Rate 96 91 89 Respiratory Rate 20 20 Blood Pressure 142/80 H 123/73 Pulse Oximetry 96 98 01/24/21 02:00 01/24/21 04:00 01/24/21 06:00 Temperature 36.0 C L Pulse Rate 95 93 68 Respiratory Rate 16 Blood Pressure 133/80 Pulse Oximetry 96 01/24/21 08:18 Temperature Pulse Rate Respiratory Rate Blood Pressure Pulse Oximetry 95 Intake/Output Intake/Output: Intake & Output 01/21/21 01/22/21 01/23/21 01/24/21 23:59 23:59 23:59 23:59 Intake Total 3980 2140 1980 100 Output Total 2275 950 3975 850 Balance [phone] -[phone] -[phone] Meds/Results Medications: Active Medications Generic Name Dose Route Start Last Admin Trade Name Freq PRN Reason Stop Dose Admin Acetaminophen 650 mg 01/24/21 08:47 Acetaminophen 325 Mg Tablet PO Q6H PRN Fever Albuterol/Ipratropium 1 puff 01/24/21 03:00 01/24/21 08:13 Albuterol/Ipratropium (*Sp) 4 Gm Respimat INHALATION 1 puff QIDRT YOSSI Administration Dextrose 12.5 gm 01/20/21 20:23 Dextrose 50% 25 Gm/50 Ml Syringe IV PUSH PRN PRN Hypoglycemia Protocol Enoxaparin Sodium 30 mg 01/21/21 09:00 01/23/21 10:04 Enoxap
[2021-01-24] MEDS: INSULIN ASPART (*BKC) 100 UNITS/ML SUB-Q ×2 (10:35→17:45)
[2021-01-24] MEDS: INSULIN ASPART (*BKC) 100 UNITS/ML 8 UNITS SUB-Q ×2 (10:36→17:45)
[2021-01-24] MEDS: INSULIN GLARGINE (*BKC) 100 UNITS/ML 44 UNITS SUB-Q (10:36)
[2021-01-24 11:19] LABS: Glucose Point of Care 298 mg/dl (65-105)
[2021-01-24] MEDS: ENOXAPARIN 30 MG/0.3 ML SYRINGE SUB-Q (11:57)
[2021-01-24] MEDS: SODIUM BICARBONATE TAB 650 MG TABLET 1300 MG PO ×2 (11:57→17:48)
[2021-01-24] MEDS: METOPROLOL TARTRATE 25 MG TABLET PO ×2 (11:58→20:24)
[2021-01-24] MEDS: TOLNAFTATE 1% POWDER 45 GM BTL 1 APPLIC TOPICAL ×2 (12:00→20:29)
--- NOTE | 2021-01-24 13:40 | PC.NURSE ---
Patient transferred from IMU bed 200 to 301-1 at 1340. Patient orientated to call light and environment. Denies pain or discomfort when asked.
[2021-01-24] MEDS: SODIUM CHLORIDE 0.9% IV 1,000 ML 75 ML IV CONT (16:00)
[2021-01-24 18:34] LABS: Glucose Point of Care 306 mg/dl (65-105)
[2021-01-24] MEDS: MICONAZOLE NITRATE 2% VAGINAL CREAM 45 GM TUBE 1 APPFUL VAGINAL (20:25)
[2021-01-24] MEDS: PHENOL/SOD PHENO SPRAY CHERRY (*BKC) 1 SPRAY MUCOUS MEM (21:10)
[2021-01-24 21:16] LABS: Glucose Point of Care 202 mg/dl (65-105)
[2021-01-25] VITALS (11 sets, daily range): BP systolic 122–138; BP diastolic 72–82; PULSE 80–109; RESP 18–20; TEMP 36.2–36.7; O2SAT 96–100
[2021-01-25] MEDS: ONDANSETRON INJ 4 MG/2 ML VIAL IV PUSH ×2 (06:00→10:38)
[2021-01-25 06:04] LABS: Hematocrit 39.5 % (37.0-47.0); Hemoglobin 12.7 g/dL (12.0-15.0); Mean Corpuscular HGB Conc 32.2 g/dl (32-36); Mean Corpuscular Hemoglobin 29.9 pg (26-34); Mean Corpuscular Volume 92.9 fl (80-100); Mean Platelet Volume 11.3 fl (7.4-10.4); Platelet Count Result 160 k/mm3 (150-375); Red Blood Count 4.25 M/mm3 (4.2-5.4); Red Cell Distribution Width 14.6 % (11.5-14.5); White Blood Count 11.1 K/mm3 (4.5-10.0)
[2021-01-25 06:16] LABS: Alanine Aminotransferase 21 U/L (4-35); Albumin Level 2.7 g/dL (3.5-5.1); Alkaline Phosphatase 151 U/L (38-126); Anion Gap 8 mmol/L (8-16); Aspartate Amino Transferase 34 U/L (14-36); Bilirubin,Total 0.5 mg/dL (0.2-1.3); Blood Urea Nitrogen 22 mg/dL (7-17); Calcium 8.5 mg/dL (8.4-10.2); Carbon Dioxide 27 mmol/L (22-30); Chloride 106 mmol/L (98-107); Estimated CRCL calculation 45 ml/min; Estimated Glomerular Filt Rate 37; Glucose 198 mg/dL (65-110); Magnesium 2.1 mg/dL (1.6-2.3); Phosphorus 3.1 mg/dL (2.5-4.5); Potassium 3.2 mmol/L (3.4-5.0); Sodium 141 mmol/L (137-145)
[2021-01-25 07:38] LABS: Glucose Point of Care 213 mg/dl (65-105)
[2021-01-25 07:56] LABS: Glucose Point of Care 255 mg/dl (65-105)
[2021-01-25] MEDS: INSULIN ASPART (*BKC) 100 UNITS/ML 8 UNITS SUB-Q ×2 (08:10→12:57)
[2021-01-25] MEDS: INSULIN ASPART (*BKC) 100 UNITS/ML SUB-Q ×2 (08:10→12:57)
[2021-01-25] MEDS: INSULIN GLARGINE (*BKC) 100 UNITS/ML 44 UNITS SUB-Q (08:11)
[2021-01-25] MEDS: METOPROLOL TARTRATE 25 MG TABLET PO ×2 (08:15→21:54)
[2021-01-25] MEDS: TOLNAFTATE 1% POWDER 45 GM BTL 1 APPLIC TOPICAL ×2 (08:16→21:58)
[2021-01-25] MEDS: ENOXAPARIN 30 MG/0.3 ML SYRINGE SUB-Q (08:16)
[2021-01-25] MEDS: FLUTICASONE PROP 220 MCG (*SP) 12 GM INHALER 2 PUFF INHALATION ×2 (08:24→19:54)
[2021-01-25 11:27] LABS: Glucose Point of Care 209 mg/dl (65-105)
--- NOTE | 2021-01-25 12:03 | PC.NURSE ---
This nurse left message with mail room r/t consult placed for patient.
--- NOTE | 2021-01-25 13:40 | PM.IMPN ---
Progress Note: A&P Assessment and Plan (1) Septic shock: Code(s): A41.9 - Sepsis, unspecified organism; R65.21 - Severe sepsis with septic shock Status: Acute Assessment and Plan: Pateint developed shock felt related to sepsis from obstructive uropathy and probably hypovolemia from the DKA and markedly elevated glucose. Lactic was up to 7.6 possibly related to the Sepsis. Lactic acid down to 2.2. BCx (1of2) growing Coag Negative Staph probably contaminated. Able to be weaned down off Levophed. IV fluids has now been discontinued. (2) Diabetic ketoacidosis: Code(s): E11.10 - Type 2 diabetes mellitus with ketoacidosis without coma Status: Acute Assessment and Plan: Glucose >1875 with BHO 6.5 and pH 7.17. She was admitted ot the ICU and started on DKA protocol. No hx of DM prior to this. Glucose in September was 126. She had significant electrolyte abnormality which was corrected. Adjust the dose of insulin. Follow closely. (3) Diabetes mellitus, new onset: Code(s): E11.9 - Type 2 diabetes mellitus without complications Status: Acute Assessment and Plan: A1c > 14. Patient with newly diagnosed DM. Will need insulin at discharge. Continue current dose of Lantus. Her fingerstick sugars are in 200s now. Continue insulin sliding scale. Continue to monitor fingerstick sugar closely. tour manager and dietitian consult in the a.m.. (4) Metabolic encephalopathy: Code(s): G93.41 - Metabolic encephalopathy Status: Acute Assessment and Plan: Patient obtunded on admisison related to the severe hyperglycemia and electrolyte disturbances. Corrected Na 169. Head CT was negative. TSH normal. Ammonia level negative. Her mental status has improved significantly and seemed to be at her baseline now. Continue to monitor. Watch for withdrawal symptoms (5) Acute kidney injury: Code(s): N17.9 - Acute kidney failure, unspecified Status: Acute Assessment and Plan: Cr 2.8 on admission. Cr 0.9 on 10/07/20. ALBER secondary to septic shock, hypovolemia, DKA and right ureteral obstructing stone. Creatinine is trending down and was 1.6 today. Monitor UOP. Continue IV fluids is she still having vomiting. Continue on full liquid diet. Advance diet if she is able to tolerated. Stop IV fluid once her p.o. intake is adequate. (6) Urinary tract infection: Code(s): N39.0 - Urinary tract infection, site not specified Status: Acute Assessment and Plan: UA noted. She has obstructive uropathy which could be the etiology of the septic shock. UCx negative. She has received 5-6 days of antibiotics with imipenem. I will stop today. Follow off antibiotic with monitoring of her fever curve and WBC count. Cultures remain negative (7) Ureterolithiasis: Code(s): N20.1 - Calculus of ureter Status: Acute Assessment and Plan: CT A/P showing 13 mm stone of the right distal ureter causing moderate right hydroureteronephrosis. She also with obstructive uropathy. Urology consulted and patient taken for stent placement 01/21. UCx negative. Appreciate urology input (8) Acute pancreatitis: Code(s): K85.90 - Acute pancreatitis without necrosis or infection, unspecified Status: Acute Assessment and Plan: Lipase [address] A/P showing enlargement of the pancreas with edematous stranding surrounding much of the peripancreatic fat consistent with acute pancreatitis. She does also have wall thickening to the second portion of the duodenum so consider penetrating duodenal ulcer. s/p CCY. TG 443. LFTs noted. [place] pancreatitis related to the severe metabolic acidosis. Lipase trending down. Recheck lipase in the a.m.. Will downgrade her diet to full liquid diet and advance it to regular diet if she is able to tolerated. Continue IV fluids. Diffuse hepatic steatosis relat
--- NOTE | 2021-01-25 16:22 | PCPTNOTE ---
Attempted to see patient this afternoon approximately 1330, patient declined at this time. Will check back tomorrow.
[2021-01-25 16:46] LABS: Glucose Point of Care 101 mg/dl (65-105)
[2021-01-25] MEDS: SODIUM CHLORIDE 0.9% IV 1,000 ML 100 ML IV CONT (17:52)
[2021-01-25] MEDS: MICONAZOLE NITRATE 2% VAGINAL CREAM 45 GM TUBE 1 APPFUL VAGINAL (21:54)
[2021-01-26] VITALS (9 sets, daily range): BP systolic 116–123; BP diastolic 76–82; PULSE 79–113; RESP 16–18; TEMP 36.1–36.5; O2SAT 97–100; BMI 34.5
[2021-01-26 00:44] LABS: Glucose Point of Care 154 mg/dl (65-105)
[2021-01-26 07:18] LABS: Alanine Aminotransferase 20 U/L (4-35); Albumin Level 2.6 g/dL (3.5-5.1); Alkaline Phosphatase 155 U/L (38-126); Anion Gap 8 mmol/L (8-16); Aspartate Amino Transferase 39 U/L (14-36); Bilirubin,Total 0.6 mg/dL (0.2-1.3); Blood Urea Nitrogen 13 mg/dL (7-17); Calcium 8.4 mg/dL (8.4-10.2); Carbon Dioxide 24 mmol/L (22-30); Chloride 102 mmol/L (98-107); Estimated CRCL calculation 54 ml/min; Estimated Glomerular Filt Rate 47; Glucose 230 mg/dL (65-110); Lipase 343 U/L (23-300); Potassium 3.5 mmol/L (3.4-5.0); Sodium 134 mmol/L (137-145)
[2021-01-26 07:53] LABS: Glucose Point of Care 229 mg/dl (65-105)
[2021-01-26] MEDS: INSULIN ASPART (*BKC) 100 UNITS/ML SUB-Q (08:24)
[2021-01-26] MEDS: INSULIN ASPART (*BKC) 100 UNITS/ML 8 UNITS SUB-Q ×3 (08:25→17:34)
[2021-01-26] MEDS: INSULIN GLARGINE (*BKC) 100 UNITS/ML 44 UNITS SUB-Q (08:26)
[2021-01-26] MEDS: TOLNAFTATE 1% POWDER 45 GM BTL 1 APPLIC TOPICAL ×2 (08:29→20:33)
[2021-01-26] MEDS: PANTOPRAZOLE 40 MG TABLET PO (08:29)
[2021-01-26] MEDS: METOPROLOL TARTRATE 25 MG TABLET PO ×2 (08:29→20:30)
[2021-01-26] MEDS: ENOXAPARIN 30 MG/0.3 ML SYRINGE SUB-Q (08:29)
[2021-01-26] MEDS: FLUTICASONE PROP 220 MCG (*SP) 12 GM INHALER 2 PUFF INHALATION ×2 (10:03→19:55)
[2021-01-26 10:04] LABS: Basophils Percent Auto 0.3 % (0.2-1.2); Eosinophils Absolute Auto 0.4 K/mm3 (0-0.3); Eosinophils Percent Auto 3.8 % (0-4.4); Hematocrit 44.7 % (37.0-47.0); Hemoglobin 13.8 g/dL (12.0-15.0); Immature Granulocyte Absolute 0.51 K/mm3 (0.00-0.031); Immature Granulocyte Percent A 4.4 % (0-0.5); Immature Platelet Fraction Pct 9.8 % (0.9-11.2); Lymphocytes Absolute Auto 2.37 K/mm3 (0.9-3.2); Lymphocytes Percent Auto 20.4 % (18.3-44.2); Mean Corpuscular HGB Conc 30.9 g/dl (32-36); Mean Corpuscular Hemoglobin 29.8 pg (26-34); Mean Corpuscular Volume 96.5 fl (80-100); Monocytes Absolute Auto 1.7 K/mm3 (0.1-0.6); Neutrophils Absolute Auto 6.5 K/mm3 (1.3-6.7); Neutrophils Percent Auto 56.1 % (45.5-73.1); Platelet Count Result 153 k/mm3 (150-375); Red Blood Count 4.63 M/mm3 (4.2-5.4); Red Cell Distribution Width 14.2 % (11.5-14.5); White Blood Count 11.6 K/mm3 (4.5-10.0)
--- NOTE | 2021-01-26 10:48 | PCDIET ---
Nutrition Follow-Up Complete: Nutrition Diagnosis: Altered nutrition related labs related to diabetes mellitus as evidenced by HgbA1C of greater than 14%. Nutrition Goal: Patient to meet estimated nutritional needs. Goal in progress. Patient has consumed an average of 75% of meals on diabetic diet. Reported emesis on 01/24/21, but patient otherwise reports tolerating fairly well. Recommend adding low fat diet due to hx pancreatitis with increased lipase. Discussed with patient that low fat foods may be better tolerated and reviewed foods to limit/avoid. Last recorded weight is 91.4 kg which is down from last review. -I/O. Bowel Motility: Last documented BM on 01/25/21 x 1. Labs Reviewed: Glu (230), Cr (1.2), Na (134), Alb (2.6), Lipase (343) Meds Noted: Combivent, Novolog, Lantus, Lopressor, Protonix, NS at 100mL/hr Additional Notes: Blister to bilateral buttocks. No pressure sores documented. Will continue to monitor with same goal. Nutrition Monitoring and Evaluation: Follow up every 5 days.
[2021-01-26] MEDS: ONDANSETRON INJ 4 MG/2 ML VIAL IV PUSH ×2 (12:13→17:32)
[2021-01-26 12:44] LABS: Glucose Point of Care 162 mg/dl (65-105)
--- NOTE | 2021-01-26 15:30 | PM.IMPN ---
Progress Note: A&P Assessment and Plan (1) Septic shock: Code(s): A41.9 - Sepsis, unspecified organism; R65.21 - Severe sepsis with septic shock Status: Acute Assessment and Plan: Pateint developed shock felt related to pancreatitis, obstructive uropathy and probably hypovolemia from the DKA and markedly elevated glucose. Lactic was up to 7.6. BCx (1of2) growing Coag Negative Staph probably contaminated. Able to be weaned down off Levophed. IV fluids to be discontinued. (2) Diabetic ketoacidosis: Code(s): E11.10 - Type 2 diabetes mellitus with ketoacidosis without coma Status: Acute Assessment and Plan: Glucose >1875 with BHO 6.5 and pH 7.17. She was admitted ot the ICU and started on DKA protocol. No hx of DM prior to this. Glucose in September was 126. She had significant electrolyte abnormality which was corrected. Follow closely. (3) Diabetes mellitus, new onset: Code(s): E11.9 - Type 2 diabetes mellitus without complications Status: Acute Assessment and Plan: A1c > 14. Patient with newly diagnosed DM. Will need insulin at discharge. Continue current dose of Lantus. Her fingerstick sugars are in 200s now. Continue insulin sliding scale. Continue to monitor fingerstick sugar closely. early childhood educator aide and dietitian consult in the a.m.. Have patient check her own sugars. (4) Metabolic encephalopathy: Code(s): G93.41 - Metabolic encephalopathy Status: Acute Assessment and Plan: Patient obtunded on admisison related to the severe hyperglycemia and electrolyte disturbances. Corrected Na 169. Head CT was negative. TSH normal. Ammonia level negative. Her mental status has improved significantly and seemed to be at her baseline now. Continue to monitor. Watch for withdrawal symptoms (5) Acute kidney injury: Code(s): N17.9 - Acute kidney failure, unspecified Status: Acute Assessment and Plan: Cr 2.8 on admission. Cr 0.9 on 10/07/20. ALBER secondary to septic shock, hypovolemia, DKA and right ureteral obstructing stone. Creatinine is trending down and was 1.2 today. Monitor UOP. Stop IV fluids. (6) Urinary tract infection: Code(s): N39.0 - Urinary tract infection, site not specified Status: Acute Assessment and Plan: UA noted. She has obstructive uropathy which could be the etiology of the shock. UCx negative. She received 5-6 days of antibiotics with imipenem. Continue to follow off antibiotic with monitoring of her fever curve and WBC count. Cultures remain negative (7) Ureterolithiasis: Code(s): N20.1 - Calculus of ureter Status: Acute Assessment and Plan: CT A/P showing 13 mm stone of the right distal ureter causing moderate right hydroureteronephrosis. She also with obstructive uropathy. Urology consulted and patient taken for stent placement 01/21. UCx negative. Appreciate urology input (8) Acute pancreatitis: Code(s): K85.90 - Acute pancreatitis without necrosis or infection, unspecified Status: Acute Assessment and Plan: Lipase [address] A/P showing enlargement of the pancreas with edematous stranding surrounding much of the peripancreatic fat consistent with acute pancreatitis. s/p CCY. TG 443. [place] pancreatitis related to the severe metabolic acidosis. Lipase trended to normal. Repeat CT A/P showing improvement in the significant peripancreatic fat stranding. Recheck lipase this a.m. showing slightly elevated but not felt to be significant Continue diabetic diet. Stop IV fluids. Diffuse hepatic steatosis related to her weight and uncontrolled DM. (9) Electrolyte abnormality: Code(s): E87.8 - Other disorders of electrolyte and fluid balance, not elsewhere classified Status: Acute Assessment and Plan: Patient presents with significant severe electrolyte abnormalities. Potassium normal on admission but dropp
[2021-01-26 17:58] LABS: Glucose Point of Care 145 mg/dl (65-105)
[2021-01-26] MEDS: MICONAZOLE NITRATE 2% VAGINAL CREAM 45 GM TUBE 1 APPFUL VAGINAL (20:33)
[2021-01-26 21:45] LABS: Glucose Point of Care 157 mg/dl (65-105)
[2021-01-27] MEDS: ACETAMINOPHEN 325 MG TABLET 650 MG PO (03:23)
[2021-01-27] MEDS: ONDANSETRON INJ 4 MG/2 ML VIAL IV PUSH (03:24)
[2021-01-27 06:00] VITALS: BP 127/74; PULSE 97; RESP 20; TEMP 36.7; O2SAT 99
[2021-01-27 06:27] LABS: Basophils Percent Auto 0.3 % (0.2-1.2); Eosinophils Absolute Auto 0.5 K/mm3 (0-0.3); Eosinophils Percent Auto 3.8 % (0-4.4); Hematocrit 39.1 % (37.0-47.0); Hemoglobin 12.4 g/dL (12.0-15.0); Immature Granulocyte Absolute 0.61 K/mm3 (0.00-0.031); Immature Granulocyte Percent A 5.2 % (0-0.5); Lymphocytes Absolute Auto 2.82 K/mm3 (0.9-3.2); Lymphocytes Percent Auto 23.9 % (18.3-44.2); Mean Corpuscular HGB Conc 31.7 g/dl (32-36); Mean Corpuscular Hemoglobin 29.6 pg (26-34); Mean Corpuscular Volume 93.3 fl (80-100); Mean Platelet Volume 11.1 fl (7.4-10.4); Monocytes Absolute Auto 1.6 K/mm3 (0.1-0.6); Monocytes Percent Auto 13.7 % (2.6-8.5); Neutrophils Absolute Auto 6.3 K/mm3 (1.3-6.7); Neutrophils Percent Auto 53.1 % (45.5-73.1); Platelet Count Result 191 k/mm3 (150-375); Red Blood Count 4.19 M/mm3 (4.2-5.4); Red Cell Distribution Width 13.9 % (11.5-14.5); White Blood Count 11.8 K/mm3 (4.5-10.0)
[2021-01-27 06:32] LABS: Albumin Level 2.7 g/dL (3.5-5.1); Anion Gap 9 mmol/L (8-16); Blood Urea Nitrogen 10 mg/dL (7-17); CRP 7.7 mg/dL (<1.0); Calcium 8.5 mg/dL (8.4-10.2); Carbon Dioxide 27 mmol/L (22-30); Chloride 103 mmol/L (98-107); Estimated CRCL calculation 59 ml/min; Estimated Glomerular Filt Rate 52; Glucose 109 mg/dL (65-110); Lipase 308 U/L (23-300); Magnesium 1.8 mg/dL (1.6-2.3); Phosphorus 3.2 mg/dL (2.5-4.5); Potassium 3.2 mmol/L (3.4-5.0); Sodium 139 mmol/L (137-145)
[2021-01-27 07:54] LABS: Glucose Point of Care 134 mg/dl (65-105)
--- NOTE | 2021-01-27 08:38 | PM.DS ---
DS: Admitting Diagnosis Admitting Diagnosis Lethargy, nausea/vomiting DS: Discharge Diagnosis Discharge Diagnosis (1) Shock: Code(s): R57.9 - Shock, unspecified Status: Acute Assessment and Plan: Patient developed shock felt related to obstructive uropathy, pancreatitis and probably hypovolemia from the DKA and markedly elevated glucose. Lactic was up to 7.6 possibly related to above. Lactic acid down to 1.2. BCx (1of2) growing Coag Negative Staph probably contaminated. Able to be weaned down off Levophed. Overall, felt sepsis ruled out and more likely SIRS with shock. (2) Diabetic ketoacidosis: Code(s): E11.10 - Type 2 diabetes mellitus with ketoacidosis without coma Status: Acute Assessment and Plan: Glucose >1875 with BHO 6.5, Anion gap 24 and pH 7.17. She was admitted to the ICU and started on DKA protocol. No hx of DM prior to this. Glucose in September was 126. She had significant electrolyte abnormality which were corrected. Glucose improved and able to wean off insulin drip and transition successfully to Lantus and meal time insulin. (3) Diabetes mellitus, new onset: Code(s): E11.9 - Type 2 diabetes mellitus without complications Status: Acute Assessment and Plan: A1c > 14. Patient presents with DKA and newly diagnosed DM. Glucose was >1875 on admission. Consider related to her pancreatitis and/or new Type I and/or Type II with insensitivity to insulin. Patient transitioned to Lantus and mealtime insulin. Glucose is improving overall which may be reflection healing of pancreas. Will decrease insulin regiment slightly. Dietitian and nurse informatics educator have seen the patient. All questions were answered. Personally provided diabetic education with the patient and all questions were answered. Strongly encouraged the patient to adhere to a regular meal plan and close monitoring of her glucose. Will arrange for patient to follow-up with outpatient endocrinology. Nursing to fax information to the endocrine office so an appointment can be made. A meter has been provided as well. (4) Metabolic encephalopathy: Code(s): G93.41 - Metabolic encephalopathy Status: Acute Assessment and Plan: Patient obtunded on admisison related to the severe hyperglycemia and electrolyte disturbances. Corrected Na 169. Head CT was negative. TSH normal. Ammonia level negative. Her mental status has improved significantly and now back to baseline. (5) Acute kidney injury: Code(s): N17.9 - Acute kidney failure, unspecified Status: Acute Assessment and Plan: Cr 2.8 on admission. Cr 0.9 on 10/07/20. ALBER secondary to shock, hypovolemia, DKA and right ureteral obstructing stone. Creatinine is trending down and was 1.1 at discahrge. (6) Urinary tract infection: Code(s): N39.0 - Urinary tract infection, site not specified Status: Acute Assessment and Plan: UA noted. She has obstructive uropathy which could be the etiology of the shock. UCx negative. She received 5-6 days of antibiotics with imipenem. Off antibiotic, no fevers or increasing WBC. UTI ruled out. (7) Ureterolithiasis: Code(s): N20.1 - Calculus of ureter Status: Acute Assessment and Plan: CT A/P showing 13 mm stone of the right distal ureter causing moderate right hydroureteronephrosis with obstructive uropathy. Urology consulted and patient taken to OR for cystoscopy and right ureteral stent insertion for large right distal ureteral stone on 01/21. UCx negative. Appreciate urology input. Patient to follow up with Urology for further management (8) Acute pancreatitis: Code(s): K85.90 - Acute pancreatitis without necrosis or infection, unspecified Status: Acute Assessment and Plan: Lipase [address] A/P showing enlargement of the pancreas with edematous stranding surrounding much of the peripancreatic fa
[2021-01-27] MEDS: ENOXAPARIN 30 MG/0.3 ML SYRINGE SUB-Q (08:46)
[2021-01-27] MEDS: POTASSIUM CHLORIDE 20 MEQ TABLET PO (08:46)
[2021-01-27 08:47] VITALS: PULSE 97
[2021-01-27] MEDS: METOPROLOL TARTRATE 25 MG TABLET PO (08:47)
[2021-01-27] MEDS: PANTOPRAZOLE 40 MG TABLET PO (08:47)
[2021-01-27] MEDS: TOLNAFTATE 1% POWDER 45 GM BTL 1 APPLIC TOPICAL (08:54)
[2021-01-27] MEDS: INSULIN GLARGINE (*BKC) 100 UNITS/ML 40 UNITS SUB-Q (08:54)
[2021-01-27] MEDS: INSULIN ASPART (*BKC) 100 UNITS/ML 6 UNITS SUB-Q (08:54)
[2021-01-27] MEDS: FLUTICASONE PROP 220 MCG (*SP) 12 GM INHALER 2 PUFF INHALATION (09:52)
== END 2021-01-27 11:20 | disposition home or self-care (01) | DRG 987 ==
LOC: ANHED 19:31 → ANHICU 01-21 06:54 → ANH3MEDSUR 01-24 21:26 → ANHICU 01-28 11:16 → ANHIMU 01-28 11:16
PROVIDERS: Internal Medicine; Internal Medicine Critical Care Medicine; Physician Assistant; Urology; Admitting Provider Internal Medicine; Emergency Provider Emergency Medicine; PCP Emergency Medicine; Visit Provider Internal Medicine
PROC: 0T768DZ Dilation of Right Ureter with Intraluminal Device, Via Natural or Artificial Opening Endoscopic (ICD-10-PCS; CPT 52352; principal; 2021-01-21 14:30)
DX: E11.10 Type 2 diabetes mellitus with ketoacidosis without coma (principal); G93.41 Metabolic encephalopathy; K85.90 Acute pancreatitis without necrosis or infection, unspecified; R57.8 Other shock; N13.2 Hydronephrosis with renal and ureteral calculous obstruction; R65.10 Systemic inflammatory response syndrome (SIRS) of non-infectious origin without acute organ dysfunction; I47.2 Ventricular tachycardia; N17.9 Acute kidney failure, unspecified; E11.65 Type 2 diabetes mellitus with hyperglycemia; J44.9 Chronic obstructive pulmonary disease, unspecified; F41.9 Anxiety disorder, unspecified; F32.9 Major depressive disorder, single episode, unspecified; M79.7 Fibromyalgia; I10 Essential (primary) hypertension; R94.31 Abnormal electrocardiogram [ECG] [EKG]; N13.9 Obstructive and reflux uropathy, unspecified; E87.6 Hypokalemia; Z90.49 Acquired absence of other specified parts of digestive tract; Z87.891 Personal history of nicotine dependence
CPT/HCPCS: 36415; 36600; 51701; 70450; 71045; 74018; 74176; 76775; 80048; 80053; 80069; 81001; 81025; 82010; 82140; 82375; 82550; 82805; 82947; 82948; 83036; 83050; 83605; 83690; 83735; 84100; 84132; 84443; 84478; 84484; 85025; 85027; 85055; 85610; 85730; 86140; 87040; 87077; 87086; 87088; 87186; 93005; 94640; 96360; 96361; 97110; 97116; 97161; 97165; 97530; 97535; 99285; A9270; C1751; C1769; C1887; C2617; C8929; C9113; J0696; J0743; J1650; J1815; J2250; J2270; J2405; J3370; J3480; J7030; J7060; Q9957; Q9966

== ENCOUNTER → 2021-02-07 01:16 | Outpatient (CLI) | payer MEDICARE, SELFPAY ==
[2021-02-07 17:52] LABS: SARS-CoV-2 RNA PCR Negative
== END ==
PROVIDERS: PCP Emergency Medicine; Visit Provider Urology
DX: Z01.812 Encounter for preprocedural laboratory examination (principal); Z20.822 Contact with and (suspected) exposure to COVID-19
CPT/HCPCS: C9803; U0003; U0005

== ENCOUNTER 2021-02-11 04:14 | Day surgery (SDC) | payer MEDICARE, SELFPAY ==
[2021-02-09 13:16] VITALS: BMI 32.0
[2021-02-11] VITALS (7 sets, daily range): BP systolic 111–127; BP diastolic 72–83; PULSE 75–82; RESP 13–20; TEMP 36.2–37.1; O2SAT 94–100
--- NOTE | ~2021-02-11 | XR_ITS ---
EXAMINATION: XR retrograde pyelo w/stent RT DATE: 02/11/2021 14:55 INDICATION: Right ureteral stone. TECHNIQUE: 4 intraoperative fluoroscopic views of the abdomen and pelvis were obtained. I was not pre sent. Fluoroscopy exposure time was 29 seconds. COMPARISON: CT abdomen and pelvis 01/21/2021 FINDINGS: The director of scout work images demonstrate a right internal ureteral stent. The right-sided retrograde py elogram is unremarkable. The final images demonstrate a new right internal ureteral stent in expected position. IMPRESSION: 1. Right internal ureteral stent in expected position. Reviewed, dictated and finalized at location [facility].
[2021-02-11] MEDS: ACETAMINOPHEN 500 MG TABLET 1000 MG PO (11:44)
[2021-02-11] MEDS: LACTATED RINGERS 1,000 ML 30 ML IV CONT ×2 (11:45→15:20)
[2021-02-11 11:46] LABS: Glucose Point of Care 117 mg/dl (65-105)
--- NOTE | 2021-02-11 11:58 | WPDANESEPPF ---
Anes - Initial Pre Proc Eval Procedure: Operation Date: 02/11/21 13:00 Proposed Procedures p Cystoscopy, Right Ureteroscopy, Right Retrograde Pyelogram, Right Stone Extraction, Possible Right Stent Placement, - Yoel Garcia MD s Possible Holmium Laser Procedure - Yoel Garcia MD Date/Time: 02/11/21 11:58 Surgeon: Yoel Garcia MD Pre Op Diagnosis: right ureteral stone Patient Data Age: 50 Gender: F Height: 1.6 m Weight: 82 kg Allergies Allergy/AdvReac Type Severity Reaction Status Date / Time No Known Allergies Allergy Unknown Unverified 01/26/21 16:06 Home Medications Medication Instructions Recorded Confirmed Type blood sugar diagnostic [OneTouch #1 [facility] 01/27/21 Rx Verio test strips] blood-glucose meter [OneTouch #1 g 01/27/21 Rx Verio Flex meter] dextrose [Glutose-15] 15 g PO PRN PRN #112.5 g 01/27/21 02/09/21 Rx insulin aspart U-100 6 unit SUBCUT TID #15 ml 01/27/21 02/09/21 Rx insulin glargine 40 unit SUBCUT QAM #15 ml 01/27/21 02/09/21 Rx lancets [OneTouch Delica Plus #1 pkg 01/27/21 Rx Lancet] metoprolol tartrate 25 mg PO BID #60 tablet 01/27/21 02/09/21 Rx pen needle, diabetic [BD #1 pkg 01/27/21 Rx Ultra-Fine Allie Pen Needle] tolnaftate 1 applic TOPICAL Q12HR #45 g 01/27/21 02/09/21 Rx Combivent Respimat 1 puff INHALATION QID PRN 02/09/21 02/09/21 History Flovent HFA 2 inh INHALATION BID 02/09/21 02/09/21 History clonazepam 1 mg PO TID PRN 02/09/21 02/09/21 History fluticasone propionate 1 spray INTRANASAL PRN PRN 02/09/21 02/09/21 History Laboratory Tests 02/11/21 11:43 POC Capillary Glucose 117 mg/dl H mg/dl (65-105) ECG: Date of Service: 01/21/21 Procedure(s): CA 12 lead EKG Accession Number(s): [id number] cc: ~ Measurements Intervals [place] Rate: 118 P: CO: 0 QRS: 50 QRSD: 68 T: 261 QT: 333 QTc: 468 Interpretive Statements ECTOPIC ATRIAL TACHYCARDIA BORDERLINE ST-T WAVE ABNORMALITY- DIFFUSE LEADS BASELINE ARTIFACT- V3-V6 ABNORMAL ECG Electronically Signed On 01-21-2021 14:26:06 CDT by Misael Lemon D.O. Patient hx anesthesia problems: none Family hx anesthesia problems: none PMFSH Past Medical History Medical History (Updated 02/11/21 @ 12:00 by Fabrizio Tejada MD) Anxiety Asthma Chronic obstructive pulmonary disease Depression Diabetes mellitus, new onset History of fibromyalgia Hypertension Surgical History Surgical History (System 01/26/21 @ 16:06 by Melquiades Post) History of section History of cholecystectomy History of tubal ligation Family History Family History (System 01/26/21 @ 16:06 by Melquiades Post) Sibling Family history of mental disorder Depression Mother Family history of mental disorder Depression Patient's mother is in good health Father Patient's father is Grandparent Hypertension Mother Family history of tuberculosis Depression Social History Social History (System 01/26/21 @ 16:06 by Melquiades Post) Social History: but . Currently living in an apartment. Plans to move in with her daughter and granddaughter. She is on disability for her fibromyalgia and anxiety. Former smoker, a pack of cigarettes a day for approximately 30 years. No alcohol or illicit substance abuse. Smoking status: Never smoker Smoking end date: 06/27/14 Alcohol intake: never Substance use: never Substance use type: does not use Living arrangements: with family Gender identity (if verbalized by the patient): Female Sexual Orientation (if Verbalized by the Patient): Straight or Heterosexual Spiritual care concerns: No Anes - Eval Final PrePr
--- NOTE | 2021-02-11 13:00 | WPDHPUPDATE1 ---
History and Physical Update Update Date/Time: 02/11/21 13:00 History and Physical has been reviewed, including an updated exam of the patient. There are NO changes in the patient's condition. Risks, benefits, and alternatives have been discussed and questions answered. Patient agrees to proceed with procedure.
[2021-02-11] MEDS: ceFAZolin 2 GM/D5W 50 ML 2 GM/50 ML BAG IVPB (13:55)
[2021-02-11] MEDS: LIDOCAINE HCL 2% GEL UROJET 10 ML PKG MUCOUS MEM (14:07)
--- NOTE | 2021-02-11 14:56 | W.PM.PROC2 ---
Procedure Note - Detailed Date of Procedure 02/11/21 Pre-op Diagnosis right ureteral stone Post-op Diagnosis same Procedure Performed Cystoscopy, right ureteroscopy, laser lithotripsy, stone extraction, retrograde pyelogram, stent exchange Surgeon Yoel Garcia MD Anesthesia general Description of Procedure Informed consents obtained. Patient taken the operating. She had preoperative antibiotics. Sutures anesthesia. A 20 F cystoscope was inserted through the urethra and bladder. The previous stent was grasped and removed to the level of the meatus. We passed a wire and then dilate with a 10 coaxial dilator. We inserted a semi rigid ureteral scope into the distal ureter we encountered the large stone. Using a laser, lithotripsy was performed to fragment the stone in multiple pieces. The stone pieces were removed with a Zero tip basket and sent as specimen. We then inspected the length of the ureter and there were no residual stones seen. Retrograde pyelogram revealed no extravasation. Over wire we placed a 6 F stent with a curl in the upper pole curl in bladder. The bladder was emptied, 10cc of lidocaine instilled. Patient taken recovery room stable condition Drains No Packing No Pathology yes Complications No immediate complications Condition stable Disposition PACU
[2021-02-11 15:05] LABS: Glucose Point of Care 94 mg/dl (65-105)
== END 2021-02-11 16:40 | disposition home or self-care (01) ==
PROVIDERS: PCP Emergency Medicine; Visit Provider Urology
PROC: (CPT 52352; principal; 2021-02-11 13:00)
PROC: (CPT 52356; 2021-02-11 13:00)
DX: N20.1 Calculus of ureter (principal); E11.9 Type 2 diabetes mellitus without complications; J44.9 Chronic obstructive pulmonary disease, unspecified; I10 Essential (primary) hypertension; F41.8 Other specified anxiety disorders; Z79.51 Long term (current) use of inhaled steroids; Z79.4 Long term (current) use of insulin; E66.9 Obesity, unspecified; Z68.34 Body mass index [BMI] 34.0-34.9, adult
CPT/HCPCS: 52356; 74420; 82365; 82948; 88300; A9270; C1769; C2617; C9803; J0690; J1100; J1885; J2250; J2370; J2405; J2704; J3010; J7120; Q9966; U0003; U0005

== ENCOUNTER → 2021-03-19 14:13 | Outpatient (CLI) | payer MEDICARE, SELFPAY ==
--- NOTE | ~2021-03-19 | XR_ITS ---
XR abdomen/kub 1V 03/19/2021 14:45 INDICATION: Ureteral stone TECHNIQUE: KUB COMPARISON: 01/21/2021 FINDINGS: Bowel gas pattern is normal. Moderate colonic fecal loading. There are cholecystectomy clip s. There is no evidence of free air, mass, organomegaly, ascites or obstruction. Air is a calcificati on in the right pelvis overlying the sacrum, possibly a distal ureteral stone. The bones appear intac t. IMPRESSION: 1: Possible distal right ureteral stone overlying the sacrum. Reviewed, dictated and finalized at location A.
== END ==
PROVIDERS: Visit Provider Urology
DX: N20.1 Calculus of ureter (principal)
CPT/HCPCS: 74018

== ENCOUNTER 2021-10-15 15:39 | Outpatient (CLI) | payer MEDICARE, SELFPAY | END 2021-10-15 15:40 | disposition home or self-care (01) | LOC: ANHLAB 15:41 | PROVIDERS: PCP Emergency Medicine; Visit Provider Emergency Medicine | DX: B80 Enterobiasis (principal) | CPT/HCPCS: 87177; 87209 ==

== ENCOUNTER 2022-11-01 14:17 | Outpatient (CLI) | payer MEDICARE, SELFPAY ==
--- NOTE | ~2022-11-01 | CT_ITS ---
Non-contrast CT scan of the Abdomen and Pelvis Clinical indication: Abdominal pain Technique: 2.5 mm axial scans were obtained through the abdomen and pelvis without intravenous or or al contrast. Dose reduction technique was used on this scan by utilizing automated exposure control a nd iterative reconstruction technique. The dose-length product (DLP) was 964.47 mGy-cm. COMPARISON: 01/13/2021 Findings: Images through the lung bases reveal no abnormalities. There is no evidence of renal or ureteral calculi. The kidneys and the ureters are nondilated. The liver, spleen, pancreas, and adrenals appear normal. Cholecystectomy clips present. There is no a ortic aneurysm. There is no evidence of bowel obstruction. No evidence to suggest appendicitis. Images through the pelvis were performed. There is no evidence of ascites or lymphadenopathy. Urinary bladder unremarkable. No adnexal mass seen. No ascites. Impression: No significant abnormality seen. Reviewed, dictated and finalized at [facility]. Impression: No significant abnormality seen.
== END 2022-11-01 14:18 ==
LOC: MICIMG 14:19
PROVIDERS: PCP Emergency Medicine; Visit Provider Urology
DX: R10.9 Unspecified abdominal pain (principal)
CPT/HCPCS: 74176

== ENCOUNTER 2022-11-10 15:37 | Outpatient (CLI) | payer MEDICARE, SELFPAY ==
--- NOTE | ~2022-11-10 | XR_ITS ---
XR abdomen/kub 1V 11/10/2022 16:14 INDICATION: Lower abdominal pain. Lost IUD. TECHNIQUE: KUB COMPARISON: CT dated 11/01/2022 FINDINGS: Bowel gas pattern is normal. There is no evidence of free air, mass, organomegaly, ascites or obstruction. No abnormal calculi are seen. The bones appear intact. There are cholecystectomy c lips. IMPRESSION: 1: No acute abdominal abnormality identified. No IUD identified. Reviewed, dictated and finalized at location B.
== END 2022-11-10 15:38 | disposition home or self-care (01) ==
LOC: ANHIMG 15:41
PROVIDERS: PCP Emergency Medicine; Visit Provider Obstetrics & Gynecology
DX: Z30.431 Encounter for routine checking of intrauterine contraceptive device (principal)
CPT/HCPCS: 74018

== ENCOUNTER 2023-09-03 23:52 | Emergency (ER) | payer MEDICARE, SELFPAY ==
--- NOTE | ~2023-09-03 | CT_ITS ---
EXAMINATION: CT brain wo con DATE: 09/04/2023 01:09 INDICATION: Syncope. Altered mental status. TECHNIQUE: Computed tomography (CT) of the head was performed without intravenous contrast. The mA wa s adjusted according to patient size. Iterative reconstruction technique was employed. Exam dose: 13 62.00 mGy-cm total exam DLP. COMPARISON: 01/20/2021 CT brain FINDINGS: Examination is very limited due to motion artifact. No obvious intracranial mass lesion or hemorrhage, midline shift or mass effect or subdural or epidur al hematoma is evident. Ventricular size appears normal. Mucoperiosteal thickening of the maxillary sinuses, left greater than right, prominent patchy opacifi cation of ethmoid air cells, also greater on the left. There is fluid in some of the mastoid air cell s. No obvious skull fracture is noted. IMPRESSION: Limited examination due to motion artifact Reviewed, dictated and finalized at [facility]. Reviewed, dictated and finalized at location A.
[2023-09-03 23:54] VITALS: BP 148/97; PULSE 111; RESP 24; TEMP 36.6; O2SAT 96
--- NOTE | 2023-09-04 00:01 | ED.GENADULT ---
HPI - General Adult General Chief complaint: Alcohol Stated complaint: syncope History of Present Illness HPI narrative: This is a 52-year-old female presenting from a local bar for syncope. per EMS the staff of the establishment said the patient came to the bar intoxicated she had chardonnay x4. the patient then began losing consciousness and the patient has helped her to the floor gently. At this time the patient is lying in bed and is responsive to pain. She cannot contribute meaningfully to the interview. Related Data Allergies Allergy/AdvReac Type Severity Reaction Status Date / Time No Known Allergies Allergy Unknown Verified 03/23/23 14:23 [facility] Past Medical History Medical History Anxiety Asthma Chronic obstructive pulmonary disease Depression Diabetes mellitus, new onset Dyslipidemia Ex-smoker History of fibromyalgia Hypertension Well woman exam (no gynecological exam) Surgical History Surgical History History of section History of cholecystectomy History of tubal ligation Family History Family History Sibling Family history of mental disorder Depression Mother Family history of mental disorder Depression Patient's mother is in good health Father Patient's father is Grandparent Hypertension Mother Family history of tuberculosis Depression Social History Social History Social History: but . Currently living in an apartment. Plans to move in with her daughter and granddaughter. She is on disability for her fibromyalgia and anxiety. Former smoker, a pack of cigarettes a day for approximately 30 years. No alcohol or illicit substance abuse. Smoking status: Never smoker Smoking end date: 06/27/14 Alcohol intake: never Substance use: never Substance use type: does not use Lack of Transportation: No Lack of Food: Never True Current Housing: I Have Housing Concerned About Future Housing: No Difficulty Paying Gas/Electric Bills: No Difficulty Paying for Meds: No Currently Unemployed: No Education: High School Diploma/GED Difficulty w/ Childcare or Family Care: No Living arrangements: with family Gender identity (if verbalized by the patient): Female Sexual Orientation (if Verbalized by the Patient): Straight or Heterosexual Spiritual care concerns: No Exam Narrative: APPEARANCE: Patient is laying in bed with brain with drool down the side of her mouth Head: atraumatic. EYES: EOMI, equal and responsive NOSE: Atraumatic NECK: Trachea midline RESPIRATORY: No increased rate of breathing CTAB CARDIOVASCULAR: tachycardic ABDOMINAL: Non-distended soft nontender MUSCULOSKELETAl: No obvious deformities NEURO: move for 4 extremities to pain SKIN:: dry PSYCHIATRIC: response to pain Course Vital Signs Vital signs: Vital Signs Temperature 98 F 09/03/23 23:54 Pulse Rate 111 H 09/03/23 23:54 Respiratory Rate 24 H 09/03/23 23:54 Blood Pressure 148/97 H 09/03/23 23:54 Pulse Oximetry 96 09/03/23 23:54 Oxygen Delivery Room Air 09/03/23 23:54 Temperature 98 F 09/03/23 23:54 Pulse Rate 100 09/04/23 00:41 Respiratory Rate 16 09/04/23 00:41 Blood Pressure 141/91 H 09/04/23 00:08 Pulse Oximetry 97 09/04/23 00:41 Oxygen Delivery Room Air 09/03/23 23:54 Medical Decision Making [facility] Narrative Medical decision making narrative: -Course: 52-year-old female presenting highly intoxicated. Alcohol level over 300. Glucose normal. CT head unremarkable. Patient was monitored until she awoke and was able to provide us with her daughter's phone number. Discharge into her daughter's custody. -DDX includes but is not limited to: ETOH, substance use, hy
[2023-09-04 00:05] LABS: Glucose Point of Care 245 mg/dl (65-105)
[2023-09-04 00:08] VITALS: BP 141/91; PULSE 106; RESP 18; O2SAT 95
[2023-09-04 00:41] VITALS: PULSE 100; RESP 16; O2SAT 97
[2023-09-04 00:43] LABS: Ethanol 338 mg/dL (<10)
[2023-09-04] MEDS: SODIUM CHLORIDE 0.9% IV 2,000 ML 999 ML IV CONT (00:49)
[2023-09-04] MEDS: ONDANSETRON INJ 4 MG/2 ML VIAL IV PUSH (00:49)
[2023-09-04 04:46] VITALS: BP 136/87; PULSE 105; RESP 16; O2SAT 97
== END 2023-09-04 04:46 | disposition home or self-care (01) ==
LOC: ANHED 09-04 00:13
PROVIDERS: Emergency Provider Emergency Medicine; PCP Emergency Medicine
DX: F10.10 Alcohol abuse, uncomplicated (principal); Y90.8 Blood alcohol level of 240 mg/100 ml or more; R55 Syncope and collapse; E11.9 Type 2 diabetes mellitus without complications; I10 Essential (primary) hypertension; Z79.4 Long term (current) use of insulin; Z79.899 Other long term (current) drug therapy
CPT/HCPCS: 36415; 70450; 80307; 82948; 96361; 96374; 99284; J2405; J7030

== ENCOUNTER 2023-09-16 14:56 | Outpatient (CLI) | payer MEDICARE, SELFPAY ==
--- NOTE | ~2023-09-16 | CT_ITS ---
EXAMINATION: CT abdomen pelvis wo con DATE: 09/16/2023 15:16 INDICATION: Acute left-sided abdominal pain. Nausea. History of nephrolithiasis TECHNIQUE: Computed tomography (CT) of the abdomen and pelvis was performed without intravenous contr ast. Automated exposure control and iterative reconstruction technique were employed. Exam dose: 961 .27 mGy-cm total exam DLP. COMPARISON: 11/01/2022 CT abdomen pelvis FINDINGS: The lung bases are clear. Normal heart size. No pericardial or pleural effusion. Status post cholecystectomy. The liver, spleen, pancreas, and adrenal glands are normal in appearance . There is moderate volume loss and scarring of the right kidney. No renal mass lesion. Subtle pinpoint nonobstructing lower pole left renal calculus. No other urinary tract calculus or hyd roureteronephrosis. The urinary bladder, uterus and adnexal areas are unremarkable. Normal caliber of the abdominal aorta. No intraperitoneal or retroperitoneal or pelvic mass lesion or adenopathy or as cites. Normal appendix. Diverticulosis of the sigmoid and descending colon; no CT evidence of diverticulitis. No bowel obstru ction, bowel wall thickening, pneumatosis or intraperitoneal free air is detected. Very small fat-containing umbilical hernia. No suspicious osteolytic or osteoblastic lesions. IMPRESSION: Pinpoint nonobstructing lower pole left renal calculus Mild sigmoid and descending colon diverticulosis; no CT evidence of diverticulitis Normal appendix Reviewed, dictated and finalized at [facility]. Reviewed, dictated and finalized at location B. IMPRESSION: Pinpoint nonobstructing lower pole left renal calculus Mild sigmoid and descending colon diverticulosis; no CT evidence of diverticuli tis Normal appendix
--- NOTE | ~2023-09-16 | XR_ITS ---
XR abdomen/kub 1V DATE: 09/16/2023 15:18 INDICATION: Abdominal pain TECHNIQUE: 2 AP views COMPARISON: 09/16/2023 CT abdomen pelvis FINDINGS: The lung bases appear clear. Heart size appears normal. Surgical clips, right upper quadrant, consistent with cholecystectomy. There is a moderately prominent amount of fecal material in the rectum and colon but no bowel obstruc tion is evident. The psoas shadows are intact. No visceromegaly or abnormal calcification is noted. Included skeletal structures are unremarkable. IMPRESSION: Moderately prominent of fecal material in the rectum and colon Reviewed, dictated and finalized at [facility]. Reviewed, dictated and finalized at location B.
== END 2023-09-16 14:57 ==
PROVIDERS: PCP Emergency Medicine; Visit Provider Physician Assistant
DX: K57.30 Diverticulosis of large intestine without perforation or abscess without bleeding (principal); N20.0 Calculus of kidney
CPT/HCPCS: 74018; 74176

== ENCOUNTER 2023-09-20 14:19 | Outpatient (CLI) | payer MEDICARE, SELFPAY ==
[2023-09-20 16:57] LABS: Influenza A QL RT-PCR Negative (Negative); Influenza B QL RT-PCR Negative (Negative); RSV RNA, RT-PCR Negative (Negative); SARS-CoV-2 RNA PCR Negative (Negative)
== END 2023-09-20 14:20 | disposition home or self-care (01) ==
LOC: ANHLAB 14:19
PROVIDERS: PCP Emergency Medicine; Visit Provider Emergency Medicine
DX: U07.1 COVID-19 (principal)
CPT/HCPCS: 87637

== ENCOUNTER 2024-08-23 17:02 | Emergency (ER) | payer MEDICARE, SELFPAY ==
--- NOTE | 2024-08-23 17:10 | ED.SOB ---
HPI - SOB/Dyspnea General Chief Complaint: Shortness of Breath/Dyspnea Stated Complaint: SOB Time Seen by Provider: 08/23/24 17:13 Source: patient, RN notes reviewed and old records reviewed Mode of arrival: ambulatory Limitations: no limitations History of Present Illness HPI Narrative: 53-year-old female presents to the [facility] with complaints of 3 day history of shortness of breath in which her Combivent is not helping. Patient is not forthcoming with much information. States that she is just here for breathing treatment. Is refusing EKG, blood sugar. On arrival patient is tachycardic, hypertensive, low saturations Patient alert and oriented x4 Onset (ago): day(s) (3) Related Data Allergies Allergy/AdvReac Type Severity Reaction Status Date / Time No Known Allergies Allergy Unknown Verified 03/23/23 14:23 Review of Systems Review of Systems: All systems reviewed & are unremarkable except as noted in HPI and below Constitutional: Constitutional: Reports no additional constitutional complaints ENT: Reports system reviewed and no additional complaints, except as documented Cardiovascular: Cardiovascular: Reports no additional cardiovascular complaints, Denies chest pain and Denies dyspnea Respiratory: Respiratory: Reports as per HPI, Denies chest congestion, Reports cough and Reports dyspnea Musculoskeletal: Musculoskeletal: Reports no additional musculoskeletal complaints Integumentary/Breasts: Skin/Breast: Reports system reviewed and no additional complaints, except as docu PMFSH Past Medical History Medical History Constipation Chest wall pain Abdominal pain Dyslipidemia Ex-smoker Well woman exam (no gynecological exam) Asthma Chronic obstructive pulmonary disease Abnormal EKG Septic shock Metabolic encephalopathy Shock Diabetes mellitus, new onset Acute kidney injury Urinary tract infection UTI (urinary tract infection) Sepsis Acute pancreatitis History of fibromyalgia Depression Anxiety Hypertension Surgical History Surgical History History of cholecystectomy History of tubal ligation History of section Family History Family History Sibling Family history of mental disorder Depression Mother Family history of mental disorder Depression Patient's mother is in good health Father Patient's father is Grandparent Hypertension Mother Family history of tuberculosis Depression Social History Social History (Reviewed 08/23/24 @ 20:03 by ABHAY Powell Social History: but . Currently living in an apartment. Plans to move in with her daughter and granddaughter. She is on disability for her fibromyalgia and anxiety. Former smoker, a pack of cigarettes a day for approximately 30 years. No alcohol or illicit substance abuse. Smoking status: Never smoker Smoking end date: 06/27/14 Alcohol intake: never Substance use: never Substance use type: does not use Current Housing: Decline to Answer Concerned About Future Housing: Decline to Answer Difficulty Paying Gas/Electric Bills: Decline to Answer Difficulty Paying for Meds: Decline to Answer Currently Unemployed: Decline to Answer Education: Decline to Answer Difficulty w/ Childcare or Family Care: Decline to Answer Living arrangements: with family Gender identity (if verbalized by the patient): Female Sexual Orientation (if Verbalized by the Patient): Straight or Heterosexual Spiritual care concerns: No Comments At the time of my signature, I reviewed and agree with the nursing past medical, surgical, social, and family history. There is no relevant family history pertinent to the patient complaint. Exam Const: General: cooperative, no acute distress, well developed, alert, anxious, uncomfortable and well nourished Nutritional Appearance: well nourished Orientation/consciousness: patient oriented x3 Limitations: no limitations HENMT: Head: normal to inspection Eyes: General: appearance normal, both eyes and all related structures Alignment and Position: alignment normal Neck: Neck: normal visual inspection, full ROM, no lymphadenopathy and no meningeal signs Chest: Chest palpation & inspection: normal inspection of the chest Resp: Effort & Inspection: normal respiratory effort and able to speak in complete sentences Cardio: Rate: tachycardic Skin: General skin exam: normal color and no rashes or lesions noted Neuro: General: patient oriented x3, gait normal, moves all extremities and no meningeal signs Cognition (Neuro): normal cognition Speech: normal speech Gait exam (Neuro): Normal gait present Extrem: General: normal to inspection, full ROM, capillary refill normal and normal gait Psych: Appearance: grossly normal and well kempt Mental Status: mental status grossly normal Speech and movement: Normal speech and movement present and Clear speech present Affect: Anxious affect present Attitude: cooperative Course Course Level of Care: Express Care Visit Vital Signs Vital signs: Vital Signs Temperature 97.4 F L 08/23/24 17:13 Pulse Rate 143 H 08/23/24 17:13 Respiratory Rate 20 08/23/24 17:13 Blood Pressure 162/109 H 08/23/24 17:13 Pulse Oximetry 93 08/23/24 17:13 Oxygen Delivery Room Air 08/23/24 17:13 Temperature 97.4 F L 08/23/24 17:13 Pulse Rate 143 H 08/23/24 17:13 Respiratory Rate 20 08/23/24 17:13 Blood Pressure 162/109 H 08/23/24 17:13 Pulse Oximetry 93 08/23/24 17:13 Oxygen Delivery Room Air 08/23/24 17:13 Reviewed MDM - SOB/Dyspnea MDM Narrative Medical decision making narrative: patient is sitting in exam room. Appears anxious. Patient's vitals has elevated blood pressure, pulse of 143. Saturations of 93%. Patient had taken her Combivent just prior to arrival. ordered an EKG and blood glucose on patient. Patient is declining stating I need to talk to my water pump assembler and my primary care provider 1st. Patient is declining any testing here stating that she just wants a breathing treatment. Discussed risks of doing a breathing treatment to her pulse already being extremely elevated. Discussed risks of this being a cardiac versus respiratory issue. Patient is disagreeing with my opinion stating again she needs to talk with her primary care provider and her [employer] Operating Engineer before she has any testing done. States this is due to legal reasons Advised patient as she was walking out that she should be evaluated in the emergency room for her symptoms. Patient states that she is going to go see her primary tomorrow and contact her water pump assembler. Differential Diagnosis Differential diagnosis: Likely acute exacerbation of chronic obstructive airways disease, congestive heart failure, community acquired pneumonia, asthma with exacerbation, pulmonary embolism and other (AFib with RVR, cardiac event) Critical Care Time Critical Care Time Critical Care Time: No Discharge Plan Discharge Clinical Impression: Shortness of breath, Tachycardia Patient Language: Estonian Prescriptions: No Action insulin aspart U-100 [Novolog FlexPen U-100 Insulin] 100 unit/mL (3 mL) insulin pen See Rx Instructions .ROUTE .COMPLEX Qty: 15 3RF Dose Instruction: INJECT 6 UNITS UNDER THE SKIN THREE TIMES DAILY Rx Instructions: INJECT 6 UNITS UNDER THE SKIN THREE TIMES DAILY metoprolol tartrate 50 mg tablet 25 mg PO BID Qty: 90 3RF Rx Instructions: 25 mg PO; simvastatin 10 mg tablet 10 mg PO DAILY Qty: 90 3RF (DME) pen needle, diabetic [BD Allie 2nd Gen Pen Needle] 32 gauge x 5/32 needle See Rx Instructions .Route Qty: 100 3RF Rx Instructions: Use with insulin aspart 3 times per day and with insulin glargine every morning. (DME) OneTouch Verio test strips Strip Qty: 300 3RF Rx Instructions: May substitute to in-stock and/or covered by insurance strips. Use to test up to 3 times daily. (DME) blood-glucose meter [OneTouch Verio Flex meter] Misc Qty: 1 0RF Rx Instructions: May substitute to in-stock meter and/or covered by insurance. Use As Directed dextrose [Glutose-15] 40 % gel 15 g PO PRN PRN (Reason: Hypoglycemia) Qty: 112.5 1RF fluticasone propionate 50 mcg/actuation spray,suspension 1 spray intranasal PRN PRN (Reason: allergies) Qty: 16 0RF Rx Instructions: SPRAY 1 - 2 SPRAYS IN EACH NOSTRIL ONCE DAILY (DME) lancets [OneTouch Delica Plus Lancet] [facility] Qty: 1 1RF Rx Instructions: May substitute to in-stock and/or covered by insurance lancets. Use to test up to 3 times per day. naproxen 500 mg tablet See Rx Instructions .ROUTE .COMPLEX Qty: 60 1RF Dose Instruction: TAKE 1 TABLET BY MOUTH TWICE A DAY WITH FOOD Rx Instructions: TAKE 1 TABLET BY MOUTH TWICE A DAY WITH FOOD Ozempic 2 mg/dose (8 mg/3 mL) pen injector 2 mg subcut WEEKLY Qty: 12 0RF Linzess 72 mcg capsule See Rx Instructions .ROUTE .COMPLEX Qty: 90 2RF Dose Instruction: TAKE 1 CAPSULE BY MOUTH DAILY Rx Instructions: TAKE 1 CAPSULE BY MOUTH DAILY Combivent Respimat 20-100 mcg/actuation mist See Rx Instructions .ROUTE .COMPLEX Qty: 4 0RF Dose Instruction: INHALE 1 PUFF BY MOUTH FOUR TIMES DAILY NEEDED FOR SHORTNESS OF BREATH, MAY TAKE ADDITIONAL PUFFS NEEDED( MAX 6 PUFFS DAILY) Rx Instructions: INHALE 1 PUFF BY MOUTH FOUR TIMES DAILY NEEDED FOR SHORTNESS OF BREATH, MAY TAKE ADDITIONAL PUFFS NEEDED( MAX 6 PUFFS DAILY) losartan 50 mg tablet See Rx Instructions .ROUTE .COMPLEX Qty: 90 3RF Dose Instruction: TAKE 1 TABLET BY MOUTH DAILY Rx Instructions: TAKE 1 TABLET BY MOUTH DAILY fluticasone propionate 220 mcg/actuation HFA aerosol inhaler See Rx Instructions .ROUTE .COMPLEX Qty: 12 3RF Dose Instruction: INHALE 2 PUFFS BY MOUTH TWICE DAILY Rx Instructions: INHALE 2 PUFFS BY MOUTH TWICE DAILY insulin glargine [Basaglar KwikPen U-100 Insulin] 100 unit/mL (3 mL) insulin pen See Rx Instructions .ROUTE .COMPLEX Qty: 15 3RF Dose Instruction: INJECT 40 UNITS(0.4 ML) UNDER THE SKIN EVERY MORNING Rx Instructions: INJECT 40 UNITS(0.4 ML) UNDER THE SKIN EVERY MORNING clonazepam 1 mg tablet 1 mg PO TID PRN (Reason: Anxiety) Qty: 60 0RF Follow-up/Referrals: Aguilar Huerta MD [Primary Care Provider] -
[2024-08-23 17:13] VITALS: BP 162/109; PULSE 143; RESP 20; TEMP 36.3; O2SAT 93
== END 2024-08-23 17:16 | disposition home or self-care (01) ==
LOC: EXPCOLL 17:04
PROVIDERS: Emergency Provider Nurse Practitioner; PCP Emergency Medicine
DX: R06.02 Shortness of breath (principal); R00.0 Tachycardia, unspecified; M79.7 Fibromyalgia; F41.9 Anxiety disorder, unspecified; E78.5 Hyperlipidemia, unspecified; J44.9 Chronic obstructive pulmonary disease, unspecified; G93.41 Metabolic encephalopathy; E11.9 Type 2 diabetes mellitus without complications; Z79.4 Long term (current) use of insulin; Z79.85 Long-term (current) use of injectable non-insulin antidiabetic drugs; I10 Essential (primary) hypertension; Z87.891 Personal history of nicotine dependence
CPT/HCPCS: 99213; G0463